=== PATIENT | female | born 1950 | race African-American/Black ===

== ENCOUNTER 2025-02-19 12:41 | Inpatient (IN) | payer OTHER ==
[2025-02-19 14:39] LABS: ABSOLUTE IMMATURE GRANULOCYTES 0.07 x10^3/uL (0.0-0.031); BASOPHILS # 0.04 x10^3/uL (0.01-0.08); HEMATOCRIT 33.6 % (34.1-44.9); HEMOGLOBIN 10.3 g/dL (11.2-15.7); MCHC 30.7 g/dl (32.2-35.5); MEAN CELL VOLUME 91.8 fl (79.4-94.8); MEAN PLT VOLUME 10.5 fl (9.4-12.3); MONOCYTE # 1.06 x10^3/uL (0.24-0.86); MONOCYTE % 6.5 % (4.7-12.5); PLATELET COUNT 286 x10^3/uL (182-369); RDW 18.3 % (12.4-16.6)
[2025-02-19 14:49] LABS: INR 1.19 (0.83-1.09); PROTHROMBIN TIME (PATIENT) 13.1 SEC (9.7-13.0)
[2025-02-19 15:07] LABS: VENOUS BASE EXCESS 1.3 mmol/L (-2-2); VENOUS O2 SATURATION 28.8 % (70-80); VENOUS PCO2 56.3 mmHg (38-52); VENOUS PH 7.322 (7.310-7.410)
[2025-02-19 15:07] LABS: URINE APPEARANCE CLEAR; URINE BILIRUBIN NEGATIVE (NEGATIVE); URINE COLOR YELLOW; URINE GLUCOSE (UA) 3+ (NEGATIVE); URINE KETONE NEGATIVE (NEGATIVE); URINE LEUK ESTERASE NEGATIVE (NEGATIVE); URINE NITRITE NEGATIVE (NEGATIVE); URINE PROTEIN NEGATIVE (NEGATIVE); URINE UROBILINOGEN 0.2 mg/dL (0.2-1.0)
[2025-02-19] MEDS ORDERED: VANCOMYCIN 1,000 MG in DEXTROSE 5%-WATER - 250 ML IVPB ONE (15:17)
[2025-02-19] MEDS ORDERED: CEFEPIME HCL/D5W 2 GM/50 ML BAG IVPB ONE (15:24)
[2025-02-19] MEDS: CEFEPIME HCL 2 GM VIAL (RESTRICTED TO ID) IVPB ONE (15:39)
[2025-02-19] MEDS ORDERED: AZITHROMYCIN IVPB 500 MG/250 ML BAG IVPB ONE (16:06)
[2025-02-19] MEDS: AZITHROMYCIN IVPB 500 MG/250 ML BAG IVPB ONE (16:15)
[2025-02-19 17:00] LABS: CHLORIDE 100 mmol/L (98-107); POTASSIUM 5.4 mmol/L (3.5-5.1); SODIUM 140 mmol/L (136-145)
[2025-02-19] MEDS ORDERED: HEPARIN NA (PORCINE) 5,000 UNITS/ML 1ML VIAL IVPUSH PRN ×2 (17:00)
[2025-02-19 17:02] LABS: CALCIUM 9.2 mg/dL (8.5-10.1)
[2025-02-19 17:03] LABS: ALBUMIN 2.5 g/dl (3.4-5.0); ANION GAP 14 mmol/L (4-13); BLOOD UREA NITROGEN 76.8 mg/dL (7-18); CO2 25 mmol/L (21-32); MAGNESIUM 2.2 mg/dL (1.8-2.4)
[2025-02-19 17:05] LABS: SGPT/ALT 18 U/L (13-61)
[2025-02-19 17:06] LABS: CREATININE 1.7 mg/dL (0.55-1.3); PHOSPHOROUS 5.7 mg/dL (2.5-4.9); SGOT/AST 37 U/L (15-37)
[2025-02-19 17:07] LABS: BILIRUBIN,TOTAL 0.4 mg/dL (0.2-1); TOT PROT 7.2 g/dl (6.4-8.2)
[2025-02-19 17:08] LABS: ALK PHOS 74 U/L (45-117)
[2025-02-19 17:09] LABS: GLUCOSE,RANDOM 447 mg/dL (74-106)
[2025-02-19] MEDS ORDERED: ATORVASTATIN CA 40 MG TABLET (FP) ONE (17:09)
[2025-02-19] MEDS ORDERED: ASPIRIN 81 MG CHEWABLE TABLETS ONE (17:09)
[2025-02-19] MEDS ORDERED: HEPARIN NA (PORCINE) 5,000 UNITS/ML 1ML VIAL ONE (17:10)
[2025-02-19] MEDS ORDERED: ACETAMINOPHEN INJECTION 100 ML ONE (17:10)
[2025-02-19] MEDS: ATORVASTATIN CA 80 MG TABLET (FP) PO ONE (17:15)
[2025-02-19] MEDS: ASPIRIN 81 MG CHEWABLE TABLETS PO ONE (17:15)
[2025-02-19] MEDS: ACETAMINOPHEN 1000 MG/100 ML BAG IVPB ONE (17:20)
[2025-02-19] MEDS: HEPARIN NA (PORCINE) 5,000 UNITS/ML 1ML VIAL IVPUSH ONE (17:25)
[2025-02-19] MEDS: HEPARIN SOD,PORK IN 0.45% NACL 25,000 UNIT/500 ML INFUS.BAG IVPB SCH (17:35)
[2025-02-19] MEDS ORDERED: INSULIN ASPART SLIDING SCALE (NOVOLOG) 1 VIAL SQ ONE (17:46)
[2025-02-19] MEDS: INSULIN (NOVOLOG) ASPART 100 UNITS/ML 10ML VIAL SQ ONE (18:00)
[2025-02-19] MEDS: INSULIN ASPART SLIDING SCALE (NOVOLOG) 1 VIAL SQ SCH (22:19)
[2025-02-20] MEDS: HEPARIN NA (PORCINE) 5,000 UNITS/ML 1ML VIAL IVPUSH PRN ×2 (00:33→18:37)
[2025-02-20 01:53] LABS: ALBUMIN 2.6 g/dl (3.4-5.0); BLOOD UREA NITROGEN 81.7 mg/dL (7-18); CALCIUM 9.5 mg/dL (8.5-10.1); MAGNESIUM 2.1 mg/dL (1.8-2.4)
[2025-02-20 01:57] LABS: CREATININE 1.5 mg/dL (0.55-1.3); PHOSPHOROUS 4.4 mg/dL (2.5-4.9)
[2025-02-20 01:58] LABS: BILIRUBIN,TOTAL 0.4 mg/dL (0.2-1); TOT PROT 7.2 g/dl (6.4-8.2)
[2025-02-20] MEDS: METOPROLOL TARTRATE 5 MG/5 ML VIAL IVPUSH ONE (02:34)
[2025-02-20] MEDS: METOPROLOL TARTRATE 5 MG/5 ML VIAL IVPUSH PRN (04:00)
[2025-02-20] MEDS: SODIUM CHLORIDE 1,000 ML IV STA (05:28)
[2025-02-20] MEDS: SODIUM CHLORIDE 0.45% 1,000 ML IV SCH (06:20)
[2025-02-20] MEDS: DIGOXIN 0.5 MG/2 ML AMPUL IVPUSH ONE (06:41)
[2025-02-20 07:16] LABS: ABSOLUTE IMMATURE GRANULOCYTES 0.06 x10^3/uL (0.0-0.031); BASOPHILS # 0.04 x10^3/uL (0.01-0.08); EOSINOPHIL % 0.6 % (0.7-5.8); EOSINOPHILS # 0.07 x10^3/uL (0.04-0.36); HEMATOCRIT 32.8 % (34.1-44.9); HEMOGLOBIN 9.9 g/dL (11.2-15.7); MCHC 30.2 g/dl (32.2-35.5); MEAN CELL VOLUME 91.4 fl (79.4-94.8); MEAN PLT VOLUME 10.3 fl (9.4-12.3); MONOCYTE # 0.91 x10^3/uL (0.24-0.86); MONOCYTE % 7.2 % (4.7-12.5); PLATELET COUNT 273 x10^3/uL (182-369); RDW 17.9 % (12.4-16.6)
[2025-02-20] MEDS: ASPIRIN 81 MG CHEWABLE TABLETS PO SCH (11:19)
[2025-02-20 13:10] VITALS: BMI 24.2
[2025-02-21 09:09] LABS: ABSOLUTE IMMATURE GRANULOCYTES 0.03 x10^3/uL (0.0-0.031); BASOPHILS # 0.02 x10^3/uL (0.01-0.08); EOSINOPHIL % 0.1 % (0.7-5.8); EOSINOPHILS # 0.01 x10^3/uL (0.04-0.36); HEMATOCRIT 31.6 % (34.1-44.9); HEMOGLOBIN 9.4 g/dL (11.2-15.7); MCHC 29.7 g/dl (32.2-35.5); MEAN CELL VOLUME 95.2 fl (79.4-94.8); MEAN PLT VOLUME 12.1 fl (9.4-12.3); MONOCYTE # 1.13 x10^3/uL (0.24-0.86); MONOCYTE % 9.1 % (4.7-12.5); PLATELET COUNT 244 x10^3/uL (182-369); RDW 18.6 % (12.4-16.6)
[2025-02-21 09:49] LABS: ALBUMIN 2.2 g/dl (3.4-5.0); CALCIUM 9.9 mg/dL (8.5-10.1)
[2025-02-21 09:51] LABS: POTASSIUM 3.7 mmol/L (3.5-5.1)
[2025-02-21 09:54] LABS: BILIRUBIN,TOTAL 0.5 mg/dL (0.2-1); TOT PROT 6.9 g/dl (6.4-8.2)
[2025-02-21 09:59] LABS: BLOOD UREA NITROGEN 48.7 mg/dL (7-18)
[2025-02-21] MEDS ORDERED: METOPROLOL TARTRATE 5 MG/5 ML VIAL ONE (11:09)
[2025-02-21] MEDS ORDERED: SODIUM CHLORIDE 0.9% 500 ML INFUS.BAG IV ONE (11:45)
[2025-02-21] MEDS: SODIUM CHLORIDE 0.9% 500 ML INFUS.BAG IV ONE (12:00)
[2025-02-21] MEDS: AMIODARONE IN DEXTROSE,ISO-OSM 150 MG/100 ML BAG IVPB ONE (12:42)
[2025-02-21] MEDS: SODIUM CHLORIDE 0.9% 250 ML INFUS.BAG IV ONE (12:46)
[2025-02-21] MEDS: AMIODARONE IN DEXTROSE,ISO-OSM 360 MG/200 ML BAG IV SCH ×2 (13:08→18:44)
[2025-02-21] MEDS: CEFTRIAXONE 2 GM-D5W BAG 2 GM/50 ML BAG IVPB SCH (14:44)
[2025-02-21] MEDS: ACETAMINOPHEN 325 MG TABLET (FP) PO PRN (17:39)
[2025-02-22 07:06] LABS: POTASSIUM 3.3 mmol/L (3.5-5.1)
[2025-02-22 07:08] LABS: ALBUMIN 2.1 g/dl (3.4-5.0); BLOOD UREA NITROGEN 37.7 mg/dL (7-18); CALCIUM 9.3 mg/dL (8.5-10.1)
[2025-02-22 07:12] LABS: CREATININE 0.8 mg/dL (0.55-1.3)
[2025-02-22 07:13] LABS: BILIRUBIN,TOTAL 0.3 mg/dL (0.2-1); TOT PROT 6.5 g/dl (6.4-8.2)
[2025-02-22] MEDS: KCL 10 MEQ IVPB 10 MEQ/100 ML INFUS.BAG IVPB SCH (11:38)
[2025-02-22] MEDS: METOPROLOL TARTRATE 25 MG TABLET (FP) PO SCH (15:08)
[2025-02-23] MEDS ORDERED: DIGOXIN 0.125 MG TABLET PO PRN ×3 (05:37→07:37)
[2025-02-23] MEDS ORDERED: METOPROLOL TARTRATE 5 MG/5 ML VIAL IVPUSH PRN (05:41)
[2025-02-23] MEDS ORDERED: AMIODARONE IN DEXTROSE,ISO-OSM 150 MG/100 ML BAG IVPB ONE (05:45)
[2025-02-23] MEDS: METOPROLOL TARTRATE 5 MG/5 ML VIAL IVPUSH ONE (05:46)
[2025-02-23] MEDS ORDERED: AMIODARONE IN DEXTROSE,ISO-OSM 360 MG/200 ML BAG IV SCH ×2 (05:55→11:55)
[2025-02-23] MEDS ORDERED: DIGOXIN 0.25 MG TABLET PO PRN (06:37)
[2025-02-23 07:40] LABS: ABSOLUTE IMMATURE GRANULOCYTES 0.06 x10^3/uL (0.0-0.031); BASOPHILS # 0.01 x10^3/uL (0.01-0.08); EOSINOPHIL % 0.6 % (0.7-5.8); EOSINOPHILS # 0.07 x10^3/uL (0.04-0.36); HEMATOCRIT 28.9 % (34.1-44.9); HEMOGLOBIN 8.7 g/dL (11.2-15.7); MCHC 30.1 g/dl (32.2-35.5); MEAN PLT VOLUME 11.9 fl (9.4-12.3); MONOCYTE # 0.78 x10^3/uL (0.24-0.86); PLATELET COUNT 223 x10^3/uL (182-369); RDW 18.9 % (12.4-16.6)
[2025-02-23 07:43] LABS: POTASSIUM 3.4 mmol/L (3.5-5.1)
[2025-02-23 07:53] LABS: CALCIUM 9.2 mg/dL (8.5-10.1)
[2025-02-23 07:54] LABS: BLOOD UREA NITROGEN 46.8 mg/dL (7-18); MAGNESIUM 2.1 mg/dL (1.8-2.4)
[2025-02-23 07:59] LABS: BILIRUBIN,TOTAL 0.3 mg/dL (0.2-1); TOT PROT 6.3 g/dl (6.4-8.2)
[2025-02-23] MEDS: APIXABAN 5 MG TABLET PO SCH (09:59)
[2025-02-23] MEDS: KCL 10 MEQ IVPB 10 MEQ/100 ML INFUS.BAG IVPB SCH (12:08)
[2025-02-23] MEDS: METOPROLOL TARTRATE 50 MG TABLET (FP) PO SCH (15:32)
[2025-02-23] MEDS: AMIODARONE HCL 200 MG TABLET PO SCH (15:32)
[2025-02-23] MEDS: FUROSEMIDE 40 MG/4 ML INJECTABLE VIAL IVPUSH ONE ×3 (16:02→20:32)
[2025-02-23] MEDS ORDERED: FUROSEMIDE 40 MG/4 ML INJECTABLE VIAL ONE (19:53)
[2025-02-23 20:11] LABS: ARTERIAL BLD GAS O2 SATURATION 99.3 % (95-98); ARTERIAL BLOOD GAS BASE EXCESS 6.7 mmol/L (-2-2); ARTERIAL BLOOD GAS PO2 170.3 mmHg (80-100); ARTERIAL BLOOD GAS pH 7.508 (7.350-7.450); O2 CONTENT 1.52 % vol
[2025-02-23 20:15] LABS: ALLENS TEST POSITIVE
[2025-02-24] MEDS: FUROSEMIDE 40 MG/4 ML INJECTABLE VIAL IVPUSH SCH (05:54)
[2025-02-24] MEDS: DIGOXIN 0.5 MG/2 ML AMPUL IVPUSH ONE (06:49)
[2025-02-24 08:11] LABS: POTASSIUM 3.4 mmol/L (3.5-5.1)
[2025-02-24 08:18] LABS: ALBUMIN 1.9 g/dl (3.4-5.0); BLOOD UREA NITROGEN 52.4 mg/dL (7-18)
[2025-02-24 08:20] LABS: BASOPHILS # 0.01 x10^3/uL (0.01-0.08); HEMOGLOBIN 8.2 g/dL (11.2-15.7); MEAN CELL VOLUME 88.8 fl (79.4-94.8)
[2025-02-24 08:21] LABS: ABSOLUTE IMMATURE GRANULOCYTES 0.05 x10^3/uL (0.0-0.031); EOSINOPHIL % 0.5 % (0.7-5.8); EOSINOPHILS # 0.04 x10^3/uL (0.04-0.36); HEMATOCRIT 26.1 % (34.1-44.9); MCHC 31.4 g/dl (32.2-35.5); MEAN PLT VOLUME 12.1 fl (9.4-12.3); MONOCYTE # 0.59 x10^3/uL (0.24-0.86); MONOCYTE % 6.8 % (4.7-12.5); PLATELET COUNT 220 x10^3/uL (182-369); RDW 18.9 % (12.4-16.6)
[2025-02-24 08:22] LABS: CREATININE 1.1 mg/dL (0.55-1.3)
[2025-02-24 08:24] LABS: BILIRUBIN,TOTAL 0.9 mg/dL (0.2-1)
[2025-02-24] MEDS: AMIODARONE IN DEXTROSE,ISO-OSM 360 MG/200 ML BAG IV SCH (09:21)
[2025-02-24] MEDS: AMIODARONE IN DEXTROSE 150 MG/100 ML PREMIX BAG IVPB ONE (09:23)
[2025-02-24] MEDS: AMINO ACIDS 4.25%/D5W 1,000 ML IV SCH (10:49)
[2025-02-24] MEDS: ENOXAPARIN NA (PORCINE) 60 MG/0.6 ML DISP.SYRIN SQ SCH (10:52)
[2025-02-24] MEDS: ACETAMINOPHEN 1000 MG/100 ML BAG IVPB PRN (21:21)
[2025-02-25 07:15] LABS: EOSINOPHIL % 0.5 % (0.7-5.8); EOSINOPHILS # 0.06 x10^3/uL (0.04-0.36); HEMOGLOBIN 8.3 g/dL (11.2-15.7)
[2025-02-25 07:17] LABS: ABSOLUTE IMMATURE GRANULOCYTES 0.12 x10^3/uL (0.0-0.031); BASOPHILS # 0.03 x10^3/uL (0.01-0.08); MCHC 31.9 g/dl (32.2-35.5); MEAN CELL VOLUME 86.7 fl (79.4-94.8); MONOCYTE # 0.52 x10^3/uL (0.24-0.86); MONOCYTE % 4.1 % (4.7-12.5); PLATELET COUNT 223 x10^3/uL (182-369); RDW 18.6 % (12.4-16.6)
[2025-02-25 08:02] LABS: ALBUMIN 1.7 g/dl (3.4-5.0); ALK PHOS 72 U/L (45-117); ANION GAP 10 mmol/L (4-13); BILIRUBIN,TOTAL 0.3 mg/dL (0.2-1); BLOOD UREA NITROGEN 60.3 mg/dL (7-18); CALCIUM 9.1 mg/dL (8.5-10.1); CHLORIDE 115 mmol/L (98-107); CO2 28 mmol/L (21-32); CREATININE 1.3 mg/dL (0.55-1.3); GLUCOSE,RANDOM 281 mg/dL (74-106); POTASSIUM 2.6 mmol/L (3.5-5.1); SGOT/AST 21 U/L (15-37); SGPT/ALT 12 U/L (13-61); SODIUM 153 mmol/L (136-145); TOT PROT 5.6 g/dl (6.4-8.2)
[2025-02-25] MEDS: CALCIUM GLUCONATE 10% - 1,000 MG/10 ML VIAL IVPB ONE (09:06)
[2025-02-25] MEDS: KCL 10 MEQ IVPB 10 MEQ/100 ML INFUS.BAG IVPB SCH (09:10)
[2025-02-25] MEDS: AMIODARONE IN DEXTROSE,ISO-OSM 360 MG/200 ML BAG IV SCH (09:23)
[2025-02-25 11:11] LABS: ARTERIAL BLD GAS O2 SATURATION 97.9 % (95-98); ARTERIAL BLOOD GAS BASE EXCESS 4.6 mmol/L (-2-2); ARTERIAL BLOOD GAS pH 7.493 (7.350-7.450); O2 CONTENT 1.25 % vol
[2025-02-25 11:15] LABS: ALLENS TEST POSITIVE
[2025-02-25] MEDS: POTASSIUM CHLORIDE 40 MEQ in AMINO ACIDS 4.25%/D5W 1,000 ML IV SCH (13:28)
[2025-02-25] MEDS: METOPROLOL TARTRATE 5 MG/5 ML VIAL IVPUSH PRN (18:49)
[2025-02-25] MEDS: CHLORHEXIDINE GLUCONATE 4% CLEANSER FOR DECOLONIZATION TP SCH (22:07)
[2025-02-25] MEDS: MUPIROCIN 2% TOPICAL OINTMENT FOR DECOLONIZATION NS SCH (22:18)
[2025-02-26] MEDS: AMIODARONE HCL 200 MG TABLET PO SCH ×2 (00:10→12:19)
[2025-02-26 07:05] LABS: HEMOGLOBIN 8.5 g/dL (11.2-15.7)
[2025-02-26 07:07] LABS: HEMATOCRIT 26.8 % (34.1-44.9); MCHC 31.7 g/dl (32.2-35.5); MEAN CELL VOLUME 86.5 fl (79.4-94.8); MEAN PLT VOLUME 12.2 fl (9.4-12.3); PLATELET COUNT 223 x10^3/uL (182-369); RDW 19.1 % (12.4-16.6)
[2025-02-26 07:28] LABS: POTASSIUM 3.7 mmol/L (3.5-5.1)
[2025-02-26 07:35] LABS: ALBUMIN 1.7 g/dl (3.4-5.0); TOT PROT 5.7 g/dl (6.4-8.2)
[2025-02-26 07:38] LABS: BILIRUBIN,TOTAL 0.4 mg/dL (0.2-1); CALCIUM 9.2 mg/dL (8.5-10.1); CREATININE 1.3 mg/dL (0.55-1.3)
[2025-02-26] MEDS: AMIODARONE IN DEXTROSE,ISO-OSM 150 MG/100 ML BAG IVPB ONE (08:10)
[2025-02-26 08:27] LABS: MAGNESIUM 1.8 mg/dL (1.8-2.4)
[2025-02-26] MEDS: AMIODARONE IN DEXTROSE,ISO-OSM 360 MG/200 ML BAG IV SCH ×2 (09:03→20:37)
[2025-02-26] MEDS ORDERED: AMIODARONE IN DEXTROSE,ISO-OSM 360 MG/200 ML BAG IV SCH (13:40)
[2025-02-26] MEDS: ACETAMINOPHEN 1000 MG/100 ML BAG IVPB PRN (17:29)
[2025-02-26] MEDS: methylPREDNISolone NA SUCC 40 MG/1 ML VIAL IVPUSH SCH (19:59)
[2025-02-26] MEDS: AMIODARONE IN DEXTROSE 150 MG/100 ML PREMIX BAG IVPB ONE (20:28)
[2025-02-26 21:13] LABS: ARTERIAL BLOOD GAS BASE EXCESS 0.9 mmol/L (-2-2); ARTERIAL BLOOD GAS PO2 53.2 mmHg (80-100); ARTERIAL BLOOD GAS pH 7.442 (7.350-7.450); O2 CONTENT 1.17 % vol
[2025-02-26 21:14] LABS: ALLENS TEST POSITIVE
[2025-02-26] MEDS ORDERED: RAPID SEQUENCE INTUBATION KIT NR ONE (21:36)
[2025-02-26] MEDS ORDERED: MIDAZOLAM HCL 2 MG/2 ML SINGLE DOSE VIAL ONE (21:45)
[2025-02-26] MEDS ORDERED: ALBUTEROL SO4 2.5/IPRATROPIUM 0.5 INH SOL 3 ML VIAL.NEB. NEB ONE (22:00)
[2025-02-26] MEDS: ALBUTEROL SO4 2.5/IPRATROPIUM 0.5 INH SOL 3 ML VIAL.NEB. NEB PRN (22:05)
[2025-02-26] MEDS ORDERED: CEFEPIME HCL 1 GM VIAL (RESTRICTED TO ID) IVPB SCH (23:00)
[2025-02-26 23:04] LABS: ARTERIAL BLD GAS O2 SATURATION 98.7 % (95-98); ARTERIAL BLOOD GAS BASE EXCESS -0.3 mmol/L (-2-2); ARTERIAL BLOOD GAS PO2 128.5 mmHg (80-100); ARTERIAL BLOOD GAS pH 7.448 (7.350-7.450)
[2025-02-26 23:07] LABS: ALLENS TEST POSITIVE
[2025-02-26] MEDS: CEFEPIME 1 GM in DEXTROSE 5%-WATER 100 ML IVPB SCH (23:18)
[2025-02-27] MEDS: VANCOMYCIN/WATER FOR INJ (PEG) 750 MG/150 ML BAG IVPB SCH (00:50)
[2025-02-27] MEDS ORDERED: AMIODARONE IN DEXTROSE,ISO-OSM 360 MG/200 ML BAG IV SCH (06:45)
[2025-02-27] MEDS: AMIODARONE IN DEXTROSE,ISO-OSM 360 MG/200 ML BAG IV SCH (07:57)
[2025-02-27 07:58] LABS: CHLORIDE 106 mmol/L (98-107); POTASSIUM 4.4 mmol/L (3.5-5.1); SODIUM 142 mmol/L (136-145)
[2025-02-27 08:01] LABS: ALBUMIN 1.6 g/dl (3.4-5.0); ANION GAP 11 mmol/L (4-13); BLOOD UREA NITROGEN 95.6 mg/dL (7-18); CALCIUM 9.4 mg/dL (8.5-10.1); CO2 25 mmol/L (21-32); MAGNESIUM 1.8 mg/dL (1.8-2.4)
[2025-02-27 08:04] LABS: PHOSPHOROUS 2.5 mg/dL (2.5-4.9); SGOT/AST 17 U/L (15-37); SGPT/ALT 12 U/L (13-61)
[2025-02-27 08:06] LABS: BILIRUBIN,TOTAL 0.4 mg/dL (0.2-1)
[2025-02-27 08:07] LABS: ALK PHOS 98 U/L (45-117)
[2025-02-27 08:15] LABS: GLUCOSE,RANDOM 524 mg/dL (74-106)
[2025-02-27] MEDS: AMIODARONE IN DEXTROSE,ISO-OSM 150 MG/100 ML BAG IVPB ONE (10:27)
[2025-02-27] MEDS: INSULIN (NOVOLOG) ASPART 100 UNITS/ML 10ML VIAL SQ ONE (10:34)
[2025-02-27 13:13] LABS: HEMATOCRIT 27.3 % (34.1-44.9); MEAN CELL VOLUME 83.2 fl (79.4-94.8); MEAN PLT VOLUME 12.1 fl (9.4-12.3); PLATELET COUNT 243 x10^3/uL (182-369); RDW 19.6 % (12.4-16.6)
[2025-02-27 14:33] LABS: ALBUMIN 1.5 g/dl (3.4-5.0); ALK PHOS 107 U/L (45-117); ANION GAP 12 mmol/L (4-13); BILIRUBIN,TOTAL 0.3 mg/dL (0.2-1); BLOOD UREA NITROGEN 104.5 mg/dL (7-18); CALCIUM 9.4 mg/dL (8.5-10.1); CHLORIDE 104 mmol/L (98-107); CO2 22 mmol/L (21-32); CREATININE 2.2 mg/dL (0.55-1.3); GLUCOSE,RANDOM 585 mg/dL (74-106); POTASSIUM 4.3 mmol/L (3.5-5.1); SGOT/AST 17 U/L (15-37); SGPT/ALT 11 U/L (13-61); SODIUM 138 mmol/L (136-145); TOT PROT 5.7 g/dl (6.4-8.2)
[2025-02-27 20:31] LABS: ARTERIAL BLD GAS O2 SATURATION 91.4 % (95-98); ARTERIAL BLOOD GAS BASE EXCESS -3.1 mmol/L (-2-2); ARTERIAL BLOOD GAS PO2 58.1 mmHg (80-100); ARTERIAL BLOOD GAS pH 7.436 (7.350-7.450)
[2025-02-27 20:32] LABS: ALLENS TEST POSITIVE
[2025-02-27] MEDS: SODIUM CHLORIDE FOR INHALATION 3 ML VIAL.NEB IH SCH (21:00)
[2025-02-27] MEDS: INSULIN GLARGINE (LANTUS) 100 UNITS/ML UNITS SQ SCH (21:48)
[2025-02-27] MEDS: methylPREDNISolone NA SUCC 40 MG/1 ML VIAL IVPUSH SCH (23:23)
[2025-02-27] MEDS: INSULIN ASPART SLIDING SCALE (NOVOLOG) 1 VIAL SQ SCH (23:24)
[2025-02-28 09:33] LABS: LACTIC ACID 2.6 mmol/L (0.4-2.0)
[2025-02-28 09:57] LABS: CHLORIDE 106 mmol/L (98-107); POTASSIUM 4.2 mmol/L (3.5-5.1); SODIUM 140 mmol/L (136-145)
[2025-02-28 09:59] LABS: CALCIUM 9.4 mg/dL (8.5-10.1)
[2025-02-28 10:00] LABS: ALBUMIN 1.5 g/dl (3.4-5.0); ANION GAP 14 mmol/L (4-13); CO2 20 mmol/L (21-32); GLUCOSE,RANDOM 307 mg/dL (74-106)
[2025-02-28 10:03] LABS: CREATININE 2.5 mg/dL (0.55-1.3); SGOT/AST 19 U/L (15-37); SGPT/ALT 12 U/L (13-61)
[2025-02-28 10:04] LABS: BILIRUBIN,TOTAL 0.2 mg/dL (0.2-1)
[2025-02-28] MEDS: MEROPENEM 1 GM in DEXTROSE 5%-WATER 100 ML IVPB SCH (10:05)
[2025-02-28 10:06] LABS: ALK PHOS 103 U/L (45-117)
[2025-02-28] MEDS ORDERED: INSULIN ASPART SLIDING SCALE (NOVOLOG) 1 VIAL SQ ONE (10:18)
[2025-02-28] MEDS: LACTATED RINGERS SOLUTION 1,000 ML/1,000 ML INFUS.BAG IV SCH (11:22)
[2025-02-28] MEDS ORDERED: INSULIN GLARGINE (LANTUS) 100 UNITS/ML UNITS SQ SCH (12:13)
[2025-02-28 12:38] LABS: LACTIC ACID 2.7 mmol/L (0.4-2.0)
[2025-02-28] MEDS ORDERED: RAPID SEQUENCE INTUBATION KIT NR ONE (15:35)
[2025-02-28] MEDS ORDERED: NOREPINEPHRINE BITARTRATE 4 MG/4 ML ML IV ONE (15:42)
[2025-02-28] MEDS ORDERED: PROPOFOL 1,000,000 MCG/100 ML VIAL ONE (15:46)
[2025-02-28] MEDS ORDERED: PROPOFOL 1,000,000 MCG/100 ML VIAL IVPB SCH (16:00)
[2025-02-28] MEDS ORDERED: ACETYLCYSTEINE 20% 200MG/ML 30 ML VIAL *FOR ORAL / INH USE ONLY NEB SCH (16:30)
[2025-02-28] MEDS: ACETYLCYSTEINE 20% 200MG/ML 4 ML VIAL *FOR ORAL / INH USE ONLY NEB SCH (16:42)
[2025-02-28] MEDS: ALBUTEROL SO4 0.083% IH SOL 2.5 MG/3 ML VIAL.NEB. NEB SCH (16:42)
[2025-02-28 17:08] LABS: INR 1.48 (0.83-1.09); PROTHROMBIN TIME (PATIENT) 16.1 SEC (9.7-13.0)
[2025-02-28 17:11] LABS: ACTIVATED PTT 40.2 SECONDS (25.2-36.5)
[2025-02-28 17:19] LABS: POTASSIUM 3.9 mmol/L (3.5-5.1)
[2025-02-28 17:20] LABS: URINE APPEARANCE TURBID; URINE BILIRUBIN NEGATIVE (NEGATIVE); URINE COLOR YELLOW; URINE GLUCOSE (UA) 500 mg/dl (NEGATIVE); URINE KETONE TRACE (NEGATIVE)
[2025-02-28 17:21] LABS: URINE LEUK ESTERASE NEGATIVE (NEGATIVE); URINE NITRITE NEGATIVE (NEGATIVE); URINE PROTEIN TRACE (NEGATIVE); URINE UROBILINOGEN 0.2 mg/dL (0.2-1.0)
[2025-02-28 17:23] LABS: URINE RBC 20.2 /uL (0-23.9)
[2025-02-28 17:24] LABS: EPI CELLS 82.6 /uL (0-25.1); HYALINE CASTS 29.9 /uL (0-3.1); URINE BACTERIA 2.8 /uL (0-1359)
[2025-02-28] MEDS: PROPOFOL 1,000,000 MCG/100 ML VIAL IVPB SCH (17:25)
[2025-02-28] MEDS: NOREPINEPHRINE BITARTRATE 4,000 MCG in DEXTROSE 5%-WATER - 496 ML IV SCH (17:25)
[2025-02-28 17:31] LABS: LACTIC ACID 6.4 mmol/L (0.4-2.0)
[2025-02-28 18:27] LABS: ARTERIAL BLD GAS O2 SATURATION 99.2 % (95-98); ARTERIAL BLOOD GAS BASE EXCESS -5.2 mmol/L (-2-2); ARTERIAL BLOOD GAS PO2 170.9 mmHg (80-100); ARTERIAL BLOOD GAS pH 7.432 (7.350-7.450)
[2025-02-28 18:31] LABS: ALLENS TEST POSITIVE
[2025-02-28 18:32] LABS: VENT MODE A/C; VENT RATE 12
[2025-02-28] MEDS: NOREPINEPHRINE 0.9 % NACL 8 MG/250 ML BAG IVPB SCH (18:53)
[2025-02-28 20:02] LABS: LACTIC ACID 2.6 mmol/L (0.4-2.0)
[2025-02-28] MEDS: SODIUM CHLORIDE 500 ML IV STA (20:34)
[2025-02-28 21:09] LABS: ANION GAP 15 mmol/L (4-13); BLOOD UREA NITROGEN 123.2 mg/dL (7-18); CALCIUM 8.9 mg/dL (8.5-10.1); CHLORIDE 105 mmol/L (98-107); CO2 18 mmol/L (21-32); GLUCOSE,RANDOM 302 mg/dL (74-106); MAGNESIUM 1.8 mg/dL (1.8-2.4); POTASSIUM 4.1 mmol/L (3.5-5.1); SODIUM 138 mmol/L (136-145)
[2025-02-28] MEDS ORDERED: LACTATED RINGERS SOLUTION 1,000 ML/1,000 ML INFUS.BAG IV SCH (21:23)
[2025-02-28] MEDS ORDERED: SODIUM CHLORIDE 0.9% 500 ML INFUS.BAG IV ONE (21:23)
[2025-02-28] MEDS ORDERED: ALBUTEROL SO4 2.5/IPRATROPIUM 0.5 INH SOL 3 ML VIAL.NEB. NEB PRN (21:23)
[2025-02-28] MEDS: LACTATED RINGERS SOLUTION 1000 ML INFUS.BAG IV ONE (21:25)
[2025-02-28 21:26] LABS: CREATININE 2.5 mg/dL (0.55-1.3); PHOSPHOROUS 3.3 mg/dL (2.5-4.9)
[2025-02-28] MEDS: CHLORHEXIDINE GLUCONATE 4% CLEANSER FOR DECOLONIZATION TP SCH (22:00)
[2025-02-28] MEDS ORDERED: CEFEPIME 1 GM in DEXTROSE 5%-WATER 100 ML IVPB SCH (22:00)
[2025-02-28] MEDS ORDERED: MUPIROCIN 2% TOPICAL OINTMENT FOR DECOLONIZATION NS SCH (22:00)
[2025-02-28] MEDS ORDERED: MEROPENEM 500 MG in DEXTROSE 5%-WATER 100 ML IVPB SCH (22:00)
[2025-02-28] MEDS: AMIODARONE HCL 200 MG TABLET PO SCH (22:00)
[2025-02-28] MEDS ORDERED: CHLORHEXIDINE GLUCONATE 4% CLEANSER FOR DECOLONIZATION TP SCH (22:00)
[2025-02-28] MEDS: MEROPENEM 500 MG in DEXTROSE 5%-WATER 100 ML IVPB SCH (22:00)
[2025-02-28] MEDS: INSULIN GLARGINE (LANTUS) 100 UNITS/ML UNITS SQ SCH (22:02)
[2025-02-28] MEDS ORDERED: VANCOMYCIN/WATER FOR INJ (PEG) 750 MG/150 ML BAG IVPB SCH (23:00)
[2025-02-28] MEDS: MUPIROCIN 2% TOPICAL OINTMENT FOR DECOLONIZATION NS SCH (23:49)
[2025-02-28] MEDS: METOPROLOL TARTRATE 50 MG TABLET (FP) PO SCH (23:49)
[2025-03-01] MEDS: INSULIN ASPART SLIDING SCALE (NOVOLOG) 1 VIAL SQ SCH (00:18)
[2025-03-01 06:51] LABS: CHLORIDE 103 mmol/L (98-107); POTASSIUM 4.3 mmol/L (3.5-5.1); SODIUM 137 mmol/L (136-145)
[2025-03-01 06:54] LABS: CALCIUM 9.5 mg/dL (8.5-10.1)
[2025-03-01 06:55] LABS: ANION GAP 14 mmol/L (4-13); CO2 20 mmol/L (21-32); GLUCOSE,RANDOM 282 mg/dL (74-106); HEMOGLOBIN 8.7 g/dL (11.2-15.7)
[2025-03-01 06:57] LABS: HEMATOCRIT 25.2 % (34.1-44.9); MCHC 34.5 g/dl (32.2-35.5); MEAN CELL VOLUME 78.8 fl (79.4-94.8); MEAN PLT VOLUME 12.3 fl (9.4-12.3); PLATELET COUNT 253 x10^3/uL (182-369); RDW 18.4 % (12.4-16.6); SGPT/ALT 13 U/L (13-61)
[2025-03-01 06:58] LABS: CREATININE 2.6 mg/dL (0.55-1.3); SGOT/AST 22 U/L (15-37)
[2025-03-01 06:59] LABS: BILIRUBIN,TOTAL 0.3 mg/dL (0.2-1)
[2025-03-01 07:15] LABS: LACTIC ACID 2.9 mmol/L (0.4-2.0)
[2025-03-01 07:16] LABS: ALBUMIN 1.5 g/dl (3.4-5.0); ALK PHOS 98 U/L (45-117); BLOOD UREA NITROGEN 124.4 mg/dL (7-18); TOT PROT 5.7 g/dl (6.4-8.2)
[2025-03-01] MEDS: ENOXAPARIN NA (PORCINE) 60 MG/0.6 ML DISP.SYRIN SQ SCH (09:00)
[2025-03-01] MEDS: ASPIRIN 81 MG CHEWABLE TABLETS PO SCH (09:39)
[2025-03-01] MEDS: methylPREDNISolone NA SUCC 40 MG/1 ML VIAL IVPUSH SCH (09:47)
[2025-03-01] MEDS: PANTOPRAZOLE SODIUM 40 MG VIAL IVPUSH SCH (09:47)
[2025-03-01] MEDS ORDERED: methylPREDNISolone NA SUCC 40 MG/1 ML VIAL IVPUSH SCH (10:00)
[2025-03-02 06:53] LABS: CHLORIDE 104 mmol/L (98-107); POTASSIUM 4.7 mmol/L (3.5-5.1); SODIUM 139 mmol/L (136-145)
[2025-03-02 07:00] LABS: ALBUMIN 1.4 g/dl (3.4-5.0); ANION GAP 18 mmol/L (4-13); CALCIUM 9.2 mg/dL (8.5-10.1); CO2 16 mmol/L (21-32); GLUCOSE,RANDOM 227 mg/dL (74-106); MAGNESIUM 1.8 mg/dL (1.8-2.4)
[2025-03-02 07:01] LABS: HEMATOCRIT 23.1 % (34.1-44.9); HEMOGLOBIN 8.4 g/dL (11.2-15.7); MCHC 36.4 g/dl (32.2-35.5); MEAN CELL VOLUME 74.5 fl (79.4-94.8); PLATELET COUNT 218 x10^3/uL (182-369); RDW 18.6 % (12.4-16.6)
[2025-03-02 07:03] LABS: CREATININE 2.9 mg/dL (0.55-1.3); PHOSPHOROUS 4.6 mg/dL (2.5-4.9); SGPT/ALT 14 U/L (13-61)
[2025-03-02 07:04] LABS: BILIRUBIN,TOTAL 0.3 mg/dL (0.2-1); SGOT/AST 20 U/L (15-37); TOT PROT 5.6 g/dl (6.4-8.2)
[2025-03-02 07:06] LABS: ALK PHOS 103 U/L (45-117); BLOOD UREA NITROGEN 139.5 mg/dL (7-18)
[2025-03-02] MEDS: SODIUM CHLORIDE FOR INHALATION 3 ML VIAL.NEB IH SCH (07:18)
[2025-03-02 09:23] LABS: MONOCYTE # 0.46 x10^3/uL (0.24-0.86)
[2025-03-02] MEDS: LACTATED RINGERS SOLUTION 1,000 ML/1,000 ML INFUS.BAG IV SCH (13:00)
[2025-03-02] MEDS: SODIUM CHLORIDE 500 ML IV STA (14:56)
[2025-03-02] MEDS: CASPOFUNGIN ACETATE 70 MG in SODIUM CHLORIDE 250 ML IVPB ONE (15:56)
[2025-03-03 06:35] LABS: ARTERIAL BLD GAS O2 SATURATION 98.4 % (95-98); ARTERIAL BLOOD GAS BASE EXCESS -4.9 mmol/L (-2-2); ARTERIAL BLOOD GAS pH 7.421 (7.350-7.450); O2 CONTENT 1.51 % vol
[2025-03-03 06:46] LABS: ALLENS TEST POSITIVE; VENT MODE A/C; VENT RATE 12
[2025-03-03 07:11] LABS: MCHC 36.4 g/dl (32.2-35.5); MEAN CELL VOLUME 74.6 fl (79.4-94.8); PLATELET COUNT 245 x10^3/uL (182-369)
[2025-03-03 07:14] LABS: CHLORIDE 105 mmol/L (98-107); POTASSIUM 4.5 mmol/L (3.5-5.1); SODIUM 140 mmol/L (136-145)
[2025-03-03 07:16] LABS: CALCIUM 9.1 mg/dL (8.5-10.1)
[2025-03-03 07:17] LABS: ALBUMIN 1.4 g/dl (3.4-5.0); ANION GAP 17 mmol/L (4-13); CO2 18 mmol/L (21-32); GLUCOSE,RANDOM 183 mg/dL (74-106); MAGNESIUM 1.9 mg/dL (1.8-2.4)
[2025-03-03 07:19] LABS: SGPT/ALT 16 U/L (13-61)
[2025-03-03 07:20] LABS: PHOSPHOROUS 4.8 mg/dL (2.5-4.9); SGOT/AST 20 U/L (15-37)
[2025-03-03 07:21] LABS: BILIRUBIN,TOTAL 0.3 mg/dL (0.2-1); TOT PROT 5.4 g/dl (6.4-8.2)
[2025-03-03 07:22] LABS: ALK PHOS 105 U/L (45-117)
[2025-03-03 07:23] LABS: BLOOD UREA NITROGEN 140.4 mg/dL (7-18); CREATININE 2.7 mg/dL (0.55-1.3)
[2025-03-03] MEDS: CASPOFUNGIN ACETATE 50 MG in SODIUM CHLORIDE 250 ML IVPB SCH (09:38)
[2025-03-03] MEDS: LACTATED RINGERS SOLUTION 1,000 ML/1,000 ML INFUS.BAG IV SCH (17:00)
[2025-03-04 06:50] LABS: CHLORIDE 105 mmol/L (98-107); POTASSIUM 4.4 mmol/L (3.5-5.1); SODIUM 139 mmol/L (136-145)
[2025-03-04 06:59] LABS: ALBUMIN 1.5 g/dl (3.4-5.0); ANION GAP 13 mmol/L (4-13); CALCIUM 8.7 mg/dL (8.5-10.1); CO2 20 mmol/L (21-32); GLUCOSE,RANDOM 220 mg/dL (74-106); MAGNESIUM 1.9 mg/dL (1.8-2.4)
[2025-03-04 07:02] LABS: SGOT/AST 43 U/L (15-37); SGPT/ALT 24 U/L (13-61)
[2025-03-04 07:03] LABS: CREATININE 2.4 mg/dL (0.55-1.3); HEMOGLOBIN 7.4 g/dL (11.2-15.7); MCHC 35.2 g/dl (32.2-35.5); MEAN CELL VOLUME 74.7 fl (79.4-94.8); PLATELET COUNT 230 x10^3/uL (182-369); RDW 18.3 % (12.4-16.6)
[2025-03-04 07:04] LABS: BILIRUBIN,TOTAL 0.4 mg/dL (0.2-1); TOT PROT 5.3 g/dl (6.4-8.2)
[2025-03-04 07:05] LABS: ALK PHOS 122 U/L (45-117)
[2025-03-04 07:47] LABS: BLOOD UREA NITROGEN 136.1 mg/dL (7-18)
[2025-03-04] MEDS ORDERED: DEXTROSE 50%-WATER 25 GM/50 ML DISP.SYRIN ONE (17:17)
[2025-03-04] MEDS: METOPROLOL TARTRATE 5 MG/5 ML VIAL IVPUSH PRN (23:54)
[2025-03-05 06:37] LABS: HEMATOCRIT 22.1 % (34.1-44.9); HEMOGLOBIN 7.9 g/dL (11.2-15.7); MCHC 35.7 g/dl (32.2-35.5); MEAN CELL VOLUME 75.7 fl (79.4-94.8); PLATELET COUNT 271 x10^3/uL (182-369); RDW 19.9 % (12.4-16.6)
[2025-03-05 06:40] LABS: CHLORIDE 107 mmol/L (98-107); POTASSIUM 4.5 mmol/L (3.5-5.1); SODIUM 140 mmol/L (136-145)
[2025-03-05 06:47] LABS: ALBUMIN 1.5 g/dl (3.4-5.0); ANION GAP 12 mmol/L (4-13); CO2 22 mmol/L (21-32); GLUCOSE,RANDOM 291 mg/dL (74-106)
[2025-03-05 06:50] LABS: CREATININE 2.1 mg/dL (0.55-1.3); PHOSPHOROUS 4.1 mg/dL (2.5-4.9); SGOT/AST 44 U/L (15-37); SGPT/ALT 33 U/L (13-61)
[2025-03-05 06:51] LABS: BILIRUBIN,TOTAL 0.4 mg/dL (0.2-1)
[2025-03-05 06:52] LABS: TOT PROT 5.3 g/dl (6.4-8.2)
[2025-03-05 06:54] LABS: ALK PHOS 154 U/L (45-117); BLOOD UREA NITROGEN 122.5 mg/dL (7-18)
[2025-03-05] MEDS: AMIODARONE HCL 200 MG TABLET PO SCH (08:56)
[2025-03-05] MEDS: PANTOPRAZOLE SODIUM 40 MG VIAL IVPUSH SCH (08:59)
[2025-03-05] MEDS: ALBUTEROL SO4 0.083% IH SOL 2.5 MG/3 ML VIAL.NEB. NEB PRN (20:12)
[2025-03-05] MEDS: INSULIN GLARGINE (LANTUS) 100 UNITS/ML UNITS SQ SCH (21:14)
[2025-03-06 06:37] LABS: HEMATOCRIT 21.8 % (34.1-44.9); HEMOGLOBIN 7.4 g/dL (11.2-15.7); MCHC 33.9 g/dl (32.2-35.5); MEAN CELL VOLUME 79.6 fl (79.4-94.8); PLATELET COUNT 233 x10^3/uL (182-369); RDW 20.6 % (12.4-16.6)
[2025-03-06 06:44] LABS: CHLORIDE 110 mmol/L (98-107); POTASSIUM 4.4 mmol/L (3.5-5.1); SODIUM 141 mmol/L (136-145)
[2025-03-06 06:49] LABS: ALBUMIN 1.5 g/dl (3.4-5.0); CALCIUM 8.4 mg/dL (8.5-10.1)
[2025-03-06 06:50] LABS: ANION GAP 9 mmol/L (4-13); CO2 22 mmol/L (21-32); GLUCOSE,RANDOM 277 mg/dL (74-106); MAGNESIUM 2.1 mg/dL (1.8-2.4)
[2025-03-06 06:52] LABS: PHOSPHOROUS 3.5 mg/dL (2.5-4.9)
[2025-03-06 06:53] LABS: BILIRUBIN,TOTAL 0.4 mg/dL (0.2-1); CREATININE 1.6 mg/dL (0.55-1.3); SGOT/AST 30 U/L (15-37); SGPT/ALT 27 U/L (13-61); TOT PROT 5.4 g/dl (6.4-8.2)
[2025-03-06 06:55] LABS: ALK PHOS 137 U/L (45-117)
[2025-03-06 08:04] LABS: BLOOD UREA NITROGEN 108.2 mg/dL (7-18)
[2025-03-07] MEDS: INSULIN ASPART SLIDING SCALE (NOVOLOG) 1 VIAL SQ SCH (06:14)
[2025-03-07 07:03] LABS: POTASSIUM 4.9 mmol/L (3.5-5.1)
[2025-03-07 07:11] LABS: ALBUMIN 1.5 g/dl (3.4-5.0)
[2025-03-07 07:13] LABS: CALCIUM 9.3 mg/dL (8.5-10.1)
[2025-03-07 07:14] LABS: HEMATOCRIT 23.1 % (34.1-44.9); HEMOGLOBIN 7.3 g/dL (11.2-15.7); MCHC 31.6 g/dl (32.2-35.5); MEAN CELL VOLUME 83.7 fl (79.4-94.8); MEAN PLT VOLUME 13.4 fl (9.4-12.3); PLATELET COUNT 248 x10^3/uL (182-369); RDW 20.3 % (12.4-16.6)
[2025-03-07 07:18] LABS: BILIRUBIN,TOTAL 0.4 mg/dL (0.2-1)
[2025-03-07 07:19] LABS: TOT PROT 5.3 g/dl (6.4-8.2)
[2025-03-07 07:20] LABS: CREATININE 1.3 mg/dL (0.55-1.3)
[2025-03-07] MEDS: INSULIN (NOVOLOG) ASPART 100 UNITS/ML 10ML VIAL SQ SCH (17:14)
[2025-03-08] MEDS ORDERED: DEXTROSE 50%-WATER 25 GM/50 ML DISP.SYRIN ONE (06:20)
[2025-03-08 07:20] LABS: HEMATOCRIT 22.6 % (34.1-44.9); HEMOGLOBIN 7.3 g/dL (11.2-15.7); MCHC 32.3 g/dl (32.2-35.5); MEAN CELL VOLUME 85.6 fl (79.4-94.8); MEAN PLT VOLUME 12.8 fl (9.4-12.3); PLATELET COUNT 240 x10^3/uL (182-369); RDW 21.9 % (12.4-16.6)
[2025-03-08 07:31] LABS: POTASSIUM 4.7 mmol/L (3.5-5.1)
[2025-03-08 07:40] LABS: ALBUMIN 1.6 g/dl (3.4-5.0); BILIRUBIN,TOTAL 0.5 mg/dL (0.2-1); TOT PROT 5.7 g/dl (6.4-8.2)
[2025-03-08 07:42] LABS: CREATININE 0.8 mg/dL (0.55-1.3)
[2025-03-08 07:43] LABS: CALCIUM 9.4 mg/dL (8.5-10.1); MAGNESIUM 2.3 mg/dL (1.8-2.4)
[2025-03-08] MEDS ORDERED: ALBUTEROL SO4 2.5/IPRATROPIUM 0.5 INH SOL 3 ML VIAL.NEB. NEB PRN (10:48)
[2025-03-08] MEDS: ENOXAPARIN NA (PORCINE) 60 MG/0.6 ML DISP.SYRIN SQ SCH (11:06)
[2025-03-08] MEDS: ALBUTEROL SO4 0.083% IH SOL 2.5 MG/3 ML VIAL.NEB. NEB PRN (12:27)
[2025-03-08] MEDS: ACETAMINOPHEN 1000 MG/100 ML BAG IVPB PRN (15:05)
[2025-03-09] MEDS ORDERED: DEXTROSE 50%-WATER 25 GM/50 ML DISP.SYRIN ONE ×2 (05:46→21:44)
[2025-03-09] MEDS: DEXTROSE 50%-WATER - 25 GM/50 ML VIAL IVPUSH PRN (05:49)
[2025-03-09 06:50] LABS: MEAN PLT VOLUME 13.1 fl (9.4-12.3)
[2025-03-09 06:52] LABS: HEMATOCRIT 25.4 % (34.1-44.9); HEMOGLOBIN 8.3 g/dL (11.2-15.7); MCHC 32.7 g/dl (32.2-35.5); MEAN CELL VOLUME 84.1 fl (79.4-94.8); PLATELET COUNT 176 x10^3/uL (182-369); RDW 19.2 % (12.4-16.6)
[2025-03-09 07:11] LABS: POTASSIUM 4.6 mmol/L (3.5-5.1)
[2025-03-09 07:12] LABS: BLOOD UREA NITROGEN 63.6 mg/dL (7-18); CALCIUM 8.3 mg/dL (8.5-10.1)
[2025-03-09 07:13] LABS: MAGNESIUM 2.1 mg/dL (1.8-2.4)
[2025-03-09 07:16] LABS: CREATININE 0.7 mg/dL (0.55-1.3)
[2025-03-09 07:18] LABS: BILIRUBIN,TOTAL 0.5 mg/dL (0.2-1); TOT PROT 4.8 g/dl (6.4-8.2)
[2025-03-09 07:22] LABS: ALBUMIN 1.2 g/dl (3.4-5.0)
[2025-03-09] MEDS: METOPROLOL TARTRATE 5 MG/5 ML VIAL IVPUSH PRN (21:46)
[2025-03-09] MEDS: DEXTROSE 50%-WATER 25 GM/50 ML DISP.SYRIN IVPUSH ONE ×2 (21:55→23:35)
[2025-03-09] MEDS ORDERED: DEXTROSE 10%-WATER - 1,000 ML IV SCH ×2 (23:00→23:45)
[2025-03-10] MEDS: DEXTROSE 10%-WATER - 1,000 ML IV SCH (01:17)
[2025-03-10] MEDS: AMIODARONE HCL 200 MG TABLET PO ONE (01:39)
[2025-03-10 08:49] LABS: HEMOGLOBIN 8.2 g/dL (11.2-15.7); MCHC 31.5 g/dl (32.2-35.5); MEAN CELL VOLUME 87.2 fl (79.4-94.8); PLATELET COUNT 165 x10^3/uL (182-369); RDW 19.9 % (12.4-16.6)
[2025-03-10 09:07] LABS: CHLORIDE 113 mmol/L (98-107); POTASSIUM 5.2 mmol/L (3.5-5.1); SODIUM 146 mmol/L (136-145)
[2025-03-10 09:10] LABS: ALBUMIN 1.1 g/dl (3.4-5.0); ANION GAP 8 mmol/L (4-13); BLOOD UREA NITROGEN 59.3 mg/dL (7-18); CALCIUM 8.3 mg/dL (8.5-10.1); CO2 25 mmol/L (21-32); MAGNESIUM 2.2 mg/dL (1.8-2.4)
[2025-03-10 09:12] LABS: SGOT/AST 29 U/L (15-37); SGPT/ALT 29 U/L (13-61)
[2025-03-10 09:13] LABS: CREATININE 0.8 mg/dL (0.55-1.3); PHOSPHOROUS 3.3 mg/dL (2.5-4.9)
[2025-03-10 09:14] LABS: BILIRUBIN,TOTAL 0.8 mg/dL (0.2-1); TOT PROT 4.7 g/dl (6.4-8.2)
[2025-03-10 09:15] LABS: ALK PHOS 148 U/L (45-117)
[2025-03-10 09:29] LABS: GLUCOSE,RANDOM 465 mg/dL (74-106)
[2025-03-10] MEDS: FUROSEMIDE 40 MG/4 ML INJECTABLE VIAL IVPUSH ONE (13:29)
[2025-03-10] MEDS ORDERED: METOPROLOL TARTRATE 5 MG/5 ML VIAL IVPUSH PRN (15:51)
[2025-03-10] MEDS: METOPROLOL TARTRATE 25 MG TABLET (FP) NGT SCH (16:52)
[2025-03-10] MEDS ORDERED: METOPROLOL TARTRATE 5 MG/5 ML VIAL IVPUSH SCH (18:00)
[2025-03-10] MEDS: CHLORHEXIDINE GLUCONATE 4% CLEANSER FOR DECOLONIZATION TP SCH (21:53)
[2025-03-10] MEDS: AMIODARONE HCL 200 MG TABLET PO SCH (21:53)
[2025-03-10] MEDS: INSULIN ASPART SLIDING SCALE (NOVOLOG) 1 VIAL SQ SCH (21:53)
[2025-03-10] MEDS: MEROPENEM 500 MG in DEXTROSE 5%-WATER 100 ML IVPB SCH (21:53)
[2025-03-10] MEDS: ENOXAPARIN NA (PORCINE) 60 MG/0.6 ML DISP.SYRIN SQ SCH (21:53)
[2025-03-11 07:10] LABS: HEMATOCRIT 23.6 % (34.1-44.9); HEMOGLOBIN 7.3 g/dL (11.2-15.7); MCHC 30.9 g/dl (32.2-35.5); MEAN CELL VOLUME 87.1 fl (79.4-94.8); MEAN PLT VOLUME 13.9 fl (9.4-12.3); PLATELET COUNT 156 x10^3/uL (182-369); RDW 19.5 % (12.4-16.6)
[2025-03-11 07:32] LABS: POTASSIUM 4.8 mmol/L (3.5-5.1)
[2025-03-11 07:34] LABS: CALCIUM 8.4 mg/dL (8.5-10.1)
[2025-03-11 07:35] LABS: MAGNESIUM 2.2 mg/dL (1.8-2.4)
[2025-03-11 07:37] LABS: CREATININE 0.8 mg/dL (0.55-1.3)
[2025-03-11 07:38] LABS: PHOSPHOROUS 3.3 mg/dL (2.5-4.9)
[2025-03-11 07:39] LABS: BILIRUBIN,TOTAL 0.6 mg/dL (0.2-1); TOT PROT 4.8 g/dl (6.4-8.2)
[2025-03-11] MEDS: ACETYLCYSTEINE 20% 200MG/ML 4 ML VIAL *FOR ORAL / INH USE ONLY NEB SCH (08:54)
[2025-03-11] MEDS: ALBUTEROL SO4 0.083% IH SOL 2.5 MG/3 ML VIAL.NEB. NEB PRN (08:56)
[2025-03-11] MEDS: METOPROLOL TARTRATE 50 MG TABLET (FP) NGT SCH (10:03)
[2025-03-11] MEDS: INSULIN GLARGINE (LANTUS) 100 UNITS/ML UNITS SQ SCH (10:03)
[2025-03-11] MEDS: PANTOPRAZOLE SODIUM 40 MG VIAL IVPUSH SCH (10:03)
[2025-03-11] MEDS: FUROSEMIDE 40 MG/4 ML INJECTABLE VIAL IVPUSH ONE (10:03)
[2025-03-11] MEDS: ASPIRIN 81 MG CHEWABLE TABLETS PO SCH (10:03)
[2025-03-11] MEDS: CASPOFUNGIN ACETATE 50 MG in SODIUM CHLORIDE 250 ML IVPB SCH (10:04)
[2025-03-12] MEDS: IRON SUCROSE INJECTION 200 MG in SODIUM CHLORIDE 100 ML IVPB ONE (00:22)
[2025-03-12 07:36] LABS: HEMATOCRIT 22.6 % (34.1-44.9); MEAN CELL VOLUME 87.6 fl (79.4-94.8); MEAN PLT VOLUME 13.7 fl (9.4-12.3); PLATELET COUNT 152 x10^3/uL (182-369); RDW 19.4 % (12.4-16.6)
[2025-03-12 07:43] LABS: POTASSIUM 4.4 mmol/L (3.5-5.1)
[2025-03-12 07:47] LABS: BLOOD UREA NITROGEN 56.3 mg/dL (7-18)
[2025-03-12 07:50] LABS: CREATININE 0.7 mg/dL (0.55-1.3)
[2025-03-12 07:53] LABS: BILIRUBIN,TOTAL 0.5 mg/dL (0.2-1); TOT PROT 4.9 g/dl (6.4-8.2)
[2025-03-12] MEDS ORDERED: FUROSEMIDE 40 MG/4 ML INJECTABLE VIAL IVPUSH SCH (10:00)
[2025-03-12] MEDS ORDERED: DEXTROSE 50%-WATER 25 GM/50 ML DISP.SYRIN ONE (21:13)
[2025-03-12] MEDS: DEXTROSE 50%-WATER - 25 GM/50 ML VIAL IVPUSH PRN (21:17)
[2025-03-12] MEDS ORDERED: DEXTROSE 50%-WATER - 25 GM/50 ML VIAL IVPUSH PRN (22:00)
[2025-03-13 06:45] LABS: POTASSIUM 4.6 mmol/L (3.5-5.1)
[2025-03-13 06:47] LABS: BLOOD UREA NITROGEN 51.4 mg/dL (7-18); CALCIUM 8.8 mg/dL (8.5-10.1)
[2025-03-13 06:51] LABS: CREATININE 0.6 mg/dL (0.55-1.3)
[2025-03-13 06:52] LABS: BILIRUBIN,TOTAL 0.6 mg/dL (0.2-1); HEMOGLOBIN 10.6 g/dL (11.2-15.7); TOT PROT 5.2 g/dl (6.4-8.2)
[2025-03-13 06:54] LABS: ABSOLUTE IMMATURE GRANULOCYTES 0.18 x10^3/uL (0.0-0.031); BASOPHILS # 0.04 x10^3/uL (0.01-0.08); EOSINOPHIL % 2.2 % (0.7-5.8); HEMATOCRIT 32.8 % (34.1-44.9); MCHC 32.3 g/dl (32.2-35.5); MEAN CELL VOLUME 84.8 fl (79.4-94.8); MONOCYTE # 0.33 x10^3/uL (0.24-0.86); MONOCYTE % 2.5 % (4.7-12.5); PLATELET COUNT 137 x10^3/uL (182-369); RDW 17.2 % (12.4-16.6)
[2025-03-13] MEDS: ACETAMINOPHEN 1000 MG/100 ML BAG IVPB PRN (09:13)
[2025-03-13] MEDS: FUROSEMIDE 40 MG/4 ML INJECTABLE VIAL IVPUSH ONE (10:14)
[2025-03-13] MEDS ORDERED: ENOXAPARIN NA (PORCINE) 80 MG/0.8 ML DISP.SYRIN SQ SCH (10:30)
[2025-03-13] MEDS: SUCCINYLCHOLINE CHLORIDE 200 MG/10 ML VIAL IVPUSH ONE ×2 (13:40→13:45)
[2025-03-13] MEDS: PROPOFOL 200 MG/20 ML VIAL IVPUSH ONE (13:45)
[2025-03-13] MEDS ORDERED: NOREPINEPHRINE BITARTRATE 4 MG/4 ML ML IV ONE ×2 (14:01→17:50)
[2025-03-13] MEDS ORDERED: VASopressin 20 UNITS/ML VIAL IV ONE (15:04)
[2025-03-13] MEDS: VASopressin 40 UNITS/100 ML BAG IV SCH ×2 (15:10→18:44)
[2025-03-13] MEDS: DEXMEDETOMIDINE PREMIX 400 MCG/100 ML BAG IVPB SCH ×2 (15:15→15:30)
[2025-03-13 15:39] LABS: RDW 17.2 % (12.4-16.6)
[2025-03-13 15:41] LABS: HEMATOCRIT 28.2 % (34.1-44.9); HEMOGLOBIN 9.3 g/dL (11.2-15.7); MEAN CELL VOLUME 85.2 fl (79.4-94.8); MEAN PLT VOLUME 13.4 fl (9.4-12.3); PLATELET COUNT 138 x10^3/uL (182-369)
[2025-03-13 15:56] LABS: POTASSIUM 4.7 mmol/L (3.5-5.1)
[2025-03-13 15:59] LABS: ALBUMIN 0.8 g/dl (3.4-5.0); BLOOD UREA NITROGEN 55.7 mg/dL (7-18)
[2025-03-13 16:02] LABS: CREATININE 0.6 mg/dL (0.55-1.3)
[2025-03-13 16:03] LABS: PHOSPHOROUS 4.6 mg/dL (2.5-4.9)
[2025-03-13 16:04] LABS: BILIRUBIN,TOTAL 1.2 mg/dL (0.2-1); TOT PROT 4.2 g/dl (6.4-8.2)
[2025-03-13 16:17] LABS: ARTERIAL BLD GAS O2 SATURATION 94.3 % (95-98); ARTERIAL BLOOD GAS BASE EXCESS 4.4 mmol/L (-2-2); ARTERIAL BLOOD GAS PO2 62.1 mmHg (80-100); ARTERIAL BLOOD GAS pH 7.535 (7.350-7.450)
[2025-03-13 16:20] LABS: VENT RATE 20
[2025-03-13 16:25] LABS: LACTIC ACID 2.6 mmol/L (0.4-2.0)
[2025-03-13] MEDS: LACTATED RINGERS SOLUTION 1,000 ML/1,000 ML INFUS.BAG IV STA (16:46)
[2025-03-13] MEDS: FLUDROCORTISONE ACETATE 0.1 MG TABLET (FP) PO SCH (16:49)
[2025-03-13] MEDS ORDERED: ACETAMINOPHEN 1000 MG/100 ML BAG IVPB PRN (17:52)
[2025-03-13] MEDS ORDERED: METOPROLOL TARTRATE 5 MG/5 ML VIAL IVPUSH PRN (17:52)
[2025-03-13] MEDS: MIDAZOLAM HCL 5 MG/1 ML Single Dose Vial IVPUSH ONE (18:37)
[2025-03-13] MEDS: NOREPINEPHRINE BITARTRATE 4,000 MCG in DEXTROSE 5%-WATER - 496 ML IV SCH (18:39)
[2025-03-13] MEDS: LACTATED RINGERS SOLUTION 1,000 ML/1,000 ML INFUS.BAG IV SCH (18:40)
[2025-03-13] MEDS: NOREPINEPHRINE 0.9 % NACL 8 MG/250 ML BAG IVPB SCH ×2 (18:41→18:43)
[2025-03-13] MEDS: ALBUTEROL SO4 0.083% IH SOL 2.5 MG/3 ML VIAL.NEB. NEB SCH ×2 (18:43→20:00)
[2025-03-13] MEDS: HYDROCORTISONE SOD SUCCINATE 100 MG/2 ML VIAL IVPB SCH ×2 (18:43→23:46)
[2025-03-13] MEDS: ACETYLCYSTEINE 20% 200MG/ML 4 ML VIAL *FOR ORAL / INH USE ONLY NEB SCH (20:00)
[2025-03-13] MEDS: INSULIN ASPART SLIDING SCALE (NOVOLOG) 1 VIAL SQ SCH (21:25)
[2025-03-13] MEDS: ENOXAPARIN NA (PORCINE) 80 MG/0.8 ML DISP.SYRIN SQ SCH (21:25)
[2025-03-13] MEDS: INSULIN GLARGINE (LANTUS) 100 UNITS/ML UNITS SQ SCH (21:25)
[2025-03-13] MEDS: MUPIROCIN 2% TOPICAL OINTMENT FOR DECOLONIZATION NS SCH (21:26)
[2025-03-13] MEDS: AMIODARONE HCL 200 MG TABLET GT SCH (21:26)
[2025-03-13] MEDS: CHLORHEXIDINE GLUCONATE 4% CLEANSER FOR DECOLONIZATION TP SCH (21:26)
[2025-03-13] MEDS: METOPROLOL TARTRATE 50 MG TABLET (FP) NGT SCH (21:26)
[2025-03-13] MEDS: MEROPENEM 500 MG in DEXTROSE 5%-WATER 100 ML IVPB SCH (21:26)
[2025-03-13] MEDS ORDERED: CHLORHEXIDINE GLUCONATE 4% CLEANSER FOR DECOLONIZATION TP SCH (22:00)
[2025-03-13] MEDS: NOREPINEPHRINE BITARTRATE/D5W 8 MG/250 ML BAG IVPB SCH (23:46)
[2025-03-14 06:53] LABS: HEMATOCRIT 28.1 % (34.1-44.9); HEMOGLOBIN 9.5 g/dL (11.2-15.7); MCHC 33.8 g/dl (32.2-35.5); MEAN CELL VOLUME 83.6 fl (79.4-94.8); PLATELET COUNT 146 x10^3/uL (182-369); RDW 16.5 % (12.4-16.6)
[2025-03-14 07:13] LABS: POTASSIUM 4.7 mmol/L (3.5-5.1)
[2025-03-14 07:31] LABS: LACTIC ACID 2.3 mmol/L (0.4-2.0)
[2025-03-14 07:33] LABS: CALCIUM 8.8 mg/dL (8.5-10.1)
[2025-03-14 07:34] LABS: BLOOD UREA NITROGEN 51.4 mg/dL (7-18); MAGNESIUM 1.9 mg/dL (1.8-2.4)
[2025-03-14 07:37] LABS: CREATININE 0.6 mg/dL (0.55-1.3); PHOSPHOROUS 3.8 mg/dL (2.5-4.9)
[2025-03-14 07:38] LABS: BILIRUBIN,TOTAL 1.2 mg/dL (0.2-1)
[2025-03-14] MEDS: VASopressin 40 UNITS/100 ML BAG IV SCH (09:31)
[2025-03-14] MEDS: PANTOPRAZOLE SODIUM 40 MG VIAL IVPUSH SCH (09:32)
[2025-03-14] MEDS: MIDODRINE HCL 2.5 MG TABLET NGT SCH (09:39)
[2025-03-14] MEDS: FLUDROCORTISONE ACETATE 0.1 MG TABLET (FP) NGT SCH (09:39)
[2025-03-14] MEDS: CASPOFUNGIN ACETATE 50 MG in SODIUM CHLORIDE 250 ML IVPB SCH (09:53)
[2025-03-14] MEDS: ASPIRIN 81 MG CHEWABLE TABLETS GT SCH (09:53)
[2025-03-14] MEDS ORDERED: FLUDROCORTISONE ACETATE 0.1 MG TABLET (FP) GT SCH (10:00)
[2025-03-14] MEDS ORDERED: MIDODRINE HCL 2.5 MG TABLET PO SCH (10:00)
[2025-03-14 11:17] LABS: LACTIC ACID 2.1 mmol/L (0.4-2.0)
[2025-03-14 11:46] LABS: VENOUS BASE EXCESS 3.9 mmol/L (-2-2); VENOUS O2 SATURATION 97.1 % (70-80); VENOUS PCO2 27.8 mmHg (38-52); VENOUS PH 7.577 (7.310-7.410)
[2025-03-14] MEDS: HYDROCORTISONE SOD SUCCINATE 100 MG/2 ML VIAL IVPB SCH (13:48)
[2025-03-14] MEDS: AMIODARONE HCL 200 MG TABLET GT ONE (14:09)
[2025-03-14] MEDS: MAGNESIUM 2GM/50ML STERILE WATER IVPB IVPB ONE (16:10)
[2025-03-14 17:35] LABS: POTASSIUM 4.2 mmol/L (3.5-5.1)
[2025-03-14 17:37] LABS: CALCIUM 8.9 mg/dL (8.5-10.1)
[2025-03-14 17:38] LABS: BLOOD UREA NITROGEN 52.4 mg/dL (7-18)
[2025-03-14 17:41] LABS: CREATININE 0.7 mg/dL (0.55-1.3)
[2025-03-14 22:32] LABS: ARTERIAL BLD GAS O2 SATURATION 96.7 % (95-98); ARTERIAL BLOOD GAS BASE EXCESS 3.4 mmol/L (-2-2); ARTERIAL BLOOD GAS PO2 77.1 mmHg (80-100); ARTERIAL BLOOD GAS pH 7.526 (7.350-7.450); O2 CONTENT 1.77 % vol
[2025-03-14 22:38] LABS: VENT MODE A/C; VENT RATE 20
[2025-03-15 03:21] LABS: MCHC 32.5 g/dl (32.2-35.5)
[2025-03-15 03:23] LABS: HEMATOCRIT 27.7 % (34.1-44.9); MEAN CELL VOLUME 86.8 fl (79.4-94.8); MEAN PLT VOLUME 13.1 fl (9.4-12.3); PLATELET COUNT 131 x10^3/uL (182-369); RDW 17.1 % (12.4-16.6)
[2025-03-15] MEDS: MAGNESIUM SULF 50% (8.12 MEQ/2 ML-1 GM VIAL) IVPB ONE (04:01)
[2025-03-15 05:40] LABS: POTASSIUM 4.3 mmol/L (3.5-5.1)
[2025-03-15 06:37] LABS: ARTERIAL BLD GAS O2 SATURATION 98.2 % (95-98); ARTERIAL BLOOD GAS BASE EXCESS 0.8 mmol/L (-2-2); ARTERIAL BLOOD GAS PO2 105.8 mmHg (80-100); ARTERIAL BLOOD GAS pH 7.484 (7.350-7.450); O2 CONTENT 1.25 % vol
[2025-03-15 06:54] LABS: VENT MODE A/C; VENT RATE 16
[2025-03-15 06:54] LABS: BILIRUBIN,TOTAL 0.7 mg/dL (0.2-1); BLOOD UREA NITROGEN 52.3 mg/dL (7-18); CALCIUM 8.3 mg/dL (8.5-10.1); CREATININE 0.6 mg/dL (0.55-1.3); TOT PROT 4.9 g/dl (6.4-8.2)
[2025-03-15] MEDS: AMIODARONE HCL 200 MG TABLET GT SCH (09:22)
[2025-03-15 09:49] LABS: MAGNESIUM 2.8 mg/dL (1.8-2.4)
[2025-03-15 09:53] LABS: PHOSPHOROUS 4.8 mg/dL (2.5-4.9)
[2025-03-15] MEDS: HYDROCORTISONE SOD SUCCINATE 100 MG/2 ML VIAL IVPB SCH (10:30)
[2025-03-16 06:28] LABS: URINE APPEARANCE CLOUDY; URINE BILIRUBIN NEGATIVE (NEGATIVE); URINE COLOR YELLOW; URINE GLUCOSE (UA) NEGATIVE (NEGATIVE); URINE KETONE NEGATIVE (NEGATIVE); URINE LEUK ESTERASE NEGATIVE (NEGATIVE); URINE NITRITE NEGATIVE (NEGATIVE); URINE PROTEIN TRACE (NEGATIVE); URINE UROBILINOGEN 0.2 mg/dL (0.2-1.0)
[2025-03-16 06:38] LABS: HEMATOCRIT 31.4 % (34.1-44.9); HEMOGLOBIN 9.7 g/dL (11.2-15.7); MCHC 30.9 g/dl (32.2-35.5); MEAN PLT VOLUME 12.3 fl (9.4-12.3); PLATELET COUNT 157 x10^3/uL (182-369); RDW 18.4 % (12.4-16.6)
[2025-03-16 06:56] LABS: POTASSIUM 4.3 mmol/L (3.5-5.1)
[2025-03-16 06:58] LABS: ALBUMIN 1.2 g/dl (3.4-5.0); BLOOD UREA NITROGEN 59.1 mg/dL (7-18); CALCIUM 9.1 mg/dL (8.5-10.1); MAGNESIUM 2.6 mg/dL (1.8-2.4)
[2025-03-16 07:01] LABS: CREATININE 0.8 mg/dL (0.55-1.3)
[2025-03-16 07:02] LABS: PHOSPHOROUS 5.7 mg/dL (2.5-4.9)
[2025-03-16 07:03] LABS: BILIRUBIN,TOTAL 0.5 mg/dL (0.2-1); TOT PROT 5.5 g/dl (6.4-8.2)
[2025-03-16] MEDS: FUROSEMIDE 40 MG/4 ML INJECTABLE VIAL IVPUSH ONE (11:44)
[2025-03-16] MEDS: DEXTROSE 50%-WATER 25 GM/50 ML DISP.SYRIN IVPUSH PRN (22:50)
[2025-03-17 07:56] LABS: MEAN PLT VOLUME 12.9 fl (9.4-12.3); RDW 18.6 % (12.4-16.6)
[2025-03-17 07:58] LABS: HEMATOCRIT 31.6 % (34.1-44.9); HEMOGLOBIN 9.8 g/dL (11.2-15.7); MEAN CELL VOLUME 91.3 fl (79.4-94.8); PLATELET COUNT 156 x10^3/uL (182-369)
[2025-03-17 08:26] LABS: POTASSIUM 3.9 mmol/L (3.5-5.1)
[2025-03-17 08:51] LABS: ALBUMIN 1.2 g/dl (3.4-5.0); BILIRUBIN,TOTAL 0.4 mg/dL (0.2-1); BLOOD UREA NITROGEN 56.3 mg/dL (7-18); CALCIUM 9.1 mg/dL (8.5-10.1); CREATININE 0.7 mg/dL (0.55-1.3); TOT PROT 5.5 g/dl (6.4-8.2)
[2025-03-17 08:52] LABS: MAGNESIUM 2.6 mg/dL (1.8-2.4)
[2025-03-17] MEDS: MIDODRINE HCL 5 MG TABLET PO SCH (14:18)
[2025-03-18 06:55] LABS: HEMATOCRIT 31.4 % (34.1-44.9); HEMOGLOBIN 9.3 g/dL (11.2-15.7); MCHC 29.6 g/dl (32.2-35.5); MEAN PLT VOLUME 13.3 fl (9.4-12.3); PLATELET COUNT 169 x10^3/uL (182-369); RDW 18.5 % (12.4-16.6)
[2025-03-18 06:56] LABS: HEMATOCRIT 31.4 % (34.1-44.9); MCHC 29.6 g/dl (32.2-35.5); MEAN PLT VOLUME 13.4 fl (9.4-12.3); PLATELET COUNT 170 x10^3/uL (182-369); RDW 18.4 % (12.4-16.6)
[2025-03-18 07:50] LABS: ALBUMIN 1.3 g/dl (3.4-5.0); BILIRUBIN,TOTAL 0.4 mg/dL (0.2-1); BLOOD UREA NITROGEN 63.6 mg/dL (7-18); CALCIUM 9.1 mg/dL (8.5-10.1); CREATININE 0.9 mg/dL (0.55-1.3); MAGNESIUM 2.4 mg/dL (1.8-2.4); PHOSPHOROUS 5.5 mg/dL (2.5-4.9); POTASSIUM 3.6 mmol/L (3.5-5.1); TOT PROT 5.2 g/dl (6.4-8.2)
[2025-03-18] MEDS: HYDROCORTISONE SOD SUCCINATE 100 MG/2 ML VIAL IVPB SCH (11:55)
[2025-03-18] MEDS: ALBUMIN HUMAN 5% 500 ML IV SOLUTION IV ONE (14:24)
[2025-03-18] MEDS: CALCIUM ACETATE 667 MG CAPSULE (FP) PO SCH (14:27)
[2025-03-18] MEDS ORDERED: ALBUTEROL SO4 0.5 % INH SOLN 2.5 MG/0.5 ML VIAL.NEB. NEB ONE (20:14)
[2025-03-19 06:49] LABS: HEMATOCRIT 24.7 % (34.1-44.9); HEMOGLOBIN 7.9 g/dL (11.2-15.7); MEAN CELL VOLUME 91.8 fl (79.4-94.8); MEAN PLT VOLUME 13.1 fl (9.4-12.3); PLATELET COUNT 138 x10^3/uL (182-369); RDW 18.4 % (12.4-16.6)
[2025-03-19 07:08] LABS: MAGNESIUM 2.3 mg/dL (1.8-2.4)
[2025-03-19 07:11] LABS: PHOSPHOROUS 3.9 mg/dL (2.5-4.9)
[2025-03-19] MEDS: POTASSIUM CHLORIDE ORAL LIQUID 20 MEQ/15 ML PO ONE (08:00)
[2025-03-19] MEDS: HYDROCORTISONE SOD SUCCINATE 100 MG/2 ML VIAL IVPB SCH (10:00)
[2025-03-19] MEDS: POTASSIUM CHLORIDE ORAL LIQUID 20 MEQ/15 ML NGT ONE (10:42)
[2025-03-19] MEDS: MIDODRINE HCL 5 MG TABLET PO SCH (10:43)
[2025-03-19] MEDS: ALBUTEROL SO4 0.083% IH SOL 2.5 MG/3 ML VIAL.NEB. NEB SCH (12:06)
[2025-03-19 17:39] LABS: POTASSIUM 4.5 mmol/L (3.5-5.1)
[2025-03-19 18:21] LABS: ALBUMIN 4.4 g/dl (3.4-5.0); BILIRUBIN,TOTAL 1.5 mg/dL (0.2-1); BLOOD UREA NITROGEN 15.5 mg/dL (7-18); CALCIUM 10.2 mg/dL (8.5-10.1); TOT PROT 7.6 g/dl (6.4-8.2)
[2025-03-19] MEDS: FLUCONAZOLE 40 MG/ML SUSPENSION NGT SCH (19:48)
[2025-03-20 07:04] LABS: HEMOGLOBIN 7.7 g/dL (11.2-15.7); MEAN PLT VOLUME 12.9 fl (9.4-12.3)
[2025-03-20 07:05] LABS: HEMATOCRIT 24.3 % (34.1-44.9); MCHC 31.7 g/dl (32.2-35.5); PLATELET COUNT 132 x10^3/uL (182-369); RDW 18.6 % (12.4-16.6)
[2025-03-20 07:14] LABS: INR 1.11 (0.83-1.09); PROTHROMBIN TIME (PATIENT) 12.2 SEC (9.7-13.0)
[2025-03-20 07:21] LABS: POTASSIUM 3.6 mmol/L (3.5-5.1)
[2025-03-20 07:28] LABS: CALCIUM 8.8 mg/dL (8.5-10.1)
[2025-03-20 07:30] LABS: ALBUMIN 1.7 g/dl (3.4-5.0); BLOOD UREA NITROGEN 50.9 mg/dL (7-18); MAGNESIUM 2.2 mg/dL (1.8-2.4)
[2025-03-20 07:33] LABS: BILIRUBIN,TOTAL 0.5 mg/dL (0.2-1); CREATININE 0.5 mg/dL (0.55-1.3); PHOSPHOROUS 2.9 mg/dL (2.5-4.9); TOT PROT 4.8 g/dl (6.4-8.2)
[2025-03-20] MEDS: PROPOFOL 1,000,000 MCG/100 ML VIAL IVPB SCH (12:12)
[2025-03-20] MEDS ORDERED: ROCURONIUM BROMIDE 50 MG/5 ML VIAL ONE (16:18)
[2025-03-20] MEDS ORDERED: NOREPINEPHRINE BITARTRATE 4 MG/4 ML ML IV ONE (17:04)
[2025-03-20] MEDS: ROCURONIUM BROMIDE 50 MG/5 ML VIAL IVPUSH ONE (17:29)
[2025-03-20] MEDS: MIDAZOLAM HCL 5 MG/1 ML Single Dose Vial IVPUSH ONE (17:30)
[2025-03-20] MEDS: LACTATED RINGERS SOLUTION 1,000 ML/1,000 ML INFUS.BAG IV ONE (19:00)
[2025-03-20] MEDS: NOREPINEPHRINE 0.9 % NACL 8 MG/250 ML BAG IVPB SCH (19:00)
[2025-03-20] MEDS: morphine SULFATE 4 MG/ML VIAL IVPUSH ONE (19:22)
[2025-03-21 07:03] LABS: BASOPHILS # 0.01 x10^3/uL (0.01-0.08); HEMATOCRIT 26.3 % (34.1-44.9); HEMOGLOBIN 8.2 g/dL (11.2-15.7); MCHC 31.2 g/dl (32.2-35.5); RDW 19.3 % (12.4-16.6)
[2025-03-21 07:05] LABS: ABSOLUTE IMMATURE GRANULOCYTES 0.05 x10^3/uL (0.0-0.031); EOSINOPHIL % 2.8 % (0.7-5.8); EOSINOPHILS # 0.12 x10^3/uL (0.04-0.36); MEAN CELL VOLUME 92.3 fl (79.4-94.8); MEAN PLT VOLUME 13.5 fl (9.4-12.3); MONOCYTE # 0.26 x10^3/uL (0.24-0.86); MONOCYTE % 6.1 % (4.7-12.5); PLATELET COUNT 129 x10^3/uL (182-369)
[2025-03-21 07:16] LABS: POTASSIUM 3.7 mmol/L (3.5-5.1)
[2025-03-21 07:26] LABS: CALCIUM 8.7 mg/dL (8.5-10.1)
[2025-03-21 07:27] LABS: ALBUMIN 1.7 g/dl (3.4-5.0); BLOOD UREA NITROGEN 44.3 mg/dL (7-18); MAGNESIUM 2.1 mg/dL (1.8-2.4)
[2025-03-21 07:30] LABS: CREATININE 0.4 mg/dL (0.55-1.3)
[2025-03-21 07:31] LABS: PHOSPHOROUS 2.6 mg/dL (2.5-4.9)
[2025-03-21 07:32] LABS: BILIRUBIN,TOTAL 0.5 mg/dL (0.2-1)
[2025-03-21 07:39] LABS: TOT PROT 4.8 g/dl (6.4-8.2)
[2025-03-22 06:53] LABS: ABSOLUTE IMMATURE GRANULOCYTES 0.12 x10^3/uL (0.0-0.031)
[2025-03-22 06:55] LABS: BASOPHILS # 0.02 x10^3/uL (0.01-0.08); EOSINOPHIL % 3.5 % (0.7-5.8); EOSINOPHILS # 0.24 x10^3/uL (0.04-0.36); HEMATOCRIT 27.2 % (34.1-44.9); HEMOGLOBIN 8.3 g/dL (11.2-15.7); MCHC 30.5 g/dl (32.2-35.5); MEAN CELL VOLUME 94.8 fl (79.4-94.8); MEAN PLT VOLUME 12.5 fl (9.4-12.3); MONOCYTE # 0.34 x10^3/uL (0.24-0.86); PLATELET COUNT 164 x10^3/uL (182-369); RDW 20.4 % (12.4-16.6)
[2025-03-22 07:18] LABS: POTASSIUM 4.1 mmol/L (3.5-5.1)
[2025-03-22 07:42] LABS: ALBUMIN 1.7 g/dl (3.4-5.0); BILIRUBIN,TOTAL 0.5 mg/dL (0.2-1); BLOOD UREA NITROGEN 39.6 mg/dL (7-18); CALCIUM 8.5 mg/dL (8.5-10.1); CREATININE 0.5 mg/dL (0.55-1.3); MAGNESIUM 2.1 mg/dL (1.8-2.4); PHOSPHOROUS 2.6 mg/dL (2.5-4.9)
[2025-03-22] MEDS ORDERED: DEXTROSE 50%-WATER 25 GM/50 ML DISP.SYRIN ONE (16:32)
[2025-03-22] MEDS: LABETALOL HCL 20 MG/4 ML VIAL IVPUSH ONE (19:43)
[2025-03-22] MEDS: PROPOFOL 200 MG/20 ML VIAL IVPUSH ONE (19:43)
[2025-03-22] MEDS: ACETYLCYSTEINE 20% 200MG/ML 4 ML VIAL *FOR ORAL / INH USE ONLY NEB SCH (20:14)
[2025-03-22] MEDS: ALBUTEROL SO4 0.083% IH SOL 2.5 MG/3 ML VIAL.NEB. NEB SCH (20:15)
[2025-03-22] MEDS: ENOXAPARIN NA (PORCINE) 80 MG/0.8 ML DISP.SYRIN SQ SCH (22:16)
[2025-03-22] MEDS: INSULIN ASPART SLIDING SCALE (NOVOLOG) 1 VIAL SQ SCH (22:16)
[2025-03-22] MEDS: CHLORHEXIDINE GLUCONATE 4% CLEANSER FOR DECOLONIZATION TP SCH (22:16)
[2025-03-23] MEDS: DEXTROSE 50%-WATER 25 GM/50 ML DISP.SYRIN IVPUSH PRN (05:35)
[2025-03-23 06:31] LABS: HEMATOCRIT 25.1 % (34.1-44.9); HEMOGLOBIN 7.8 g/dL (11.2-15.7); MCHC 31.1 g/dl (32.2-35.5); MEAN CELL VOLUME 95.8 fl (79.4-94.8); MEAN PLT VOLUME 12.4 fl (9.4-12.3); PLATELET COUNT 137 x10^3/uL (182-369); RDW 20.8 % (12.4-16.6)
[2025-03-23] MEDS ORDERED: INSULIN ASPART SLIDING SCALE (NOVOLOG) 1 VIAL SQ ONE (06:42)
[2025-03-23 09:08] LABS: POTASSIUM 4.4 mmol/L (3.5-5.1)
[2025-03-23 10:03] LABS: ALBUMIN 1.5 g/dl (3.4-5.0); BLOOD UREA NITROGEN 41.4 mg/dL (7-18); MAGNESIUM 2.2 mg/dL (1.8-2.4)
[2025-03-23 10:06] LABS: CREATININE 0.5 mg/dL (0.55-1.3); PHOSPHOROUS 2.4 mg/dL (2.5-4.9)
[2025-03-23 10:07] LABS: BILIRUBIN,TOTAL 0.4 mg/dL (0.2-1)
[2025-03-23 10:08] LABS: TOT PROT 4.7 g/dl (6.4-8.2)
[2025-03-23] MEDS: PANTOPRAZOLE SODIUM 40 MG VIAL IVPUSH SCH (10:39)
[2025-03-23] MEDS: AMIODARONE HCL 200 MG TABLET GT SCH (10:40)
[2025-03-23] MEDS: FLUCONAZOLE 40 MG/ML SUSPENSION NGT SCH (10:40)
[2025-03-23] MEDS: ASPIRIN 81 MG CHEWABLE TABLETS GT SCH (10:40)
[2025-03-23] MEDS ORDERED: ACETYLCYSTEINE 20% 200MG/ML 4 ML VIAL *FOR ORAL / INH USE ONLY ONE (19:16)
[2025-03-23] MEDS: INSULIN GLARGINE (LANTUS) 100 UNITS/ML UNITS SQ SCH (21:12)
[2025-03-24 07:21] LABS: HEMATOCRIT 24.2 % (34.1-44.9); HEMOGLOBIN 7.2 g/dL (11.2-15.7); MCHC 29.8 g/dl (32.2-35.5); MEAN CELL VOLUME 96.8 fl (79.4-94.8); MEAN PLT VOLUME 13.1 fl (9.4-12.3); PLATELET COUNT 142 x10^3/uL (182-369); RDW 20.8 % (12.4-16.6)
[2025-03-24 07:46] LABS: BLOOD UREA NITROGEN 38.3 mg/dL (7-18); CALCIUM 8.7 mg/dL (8.5-10.1); CREATININE 0.4 mg/dL (0.55-1.3); MAGNESIUM 2.2 mg/dL (1.8-2.4); PHOSPHOROUS 2.1 mg/dL (2.5-4.9); POTASSIUM 4.7 mmol/L (3.5-5.1)
[2025-03-25 07:11] LABS: MAGNESIUM 2.2 mg/dL (1.8-2.4)
[2025-03-25 07:14] LABS: PHOSPHOROUS 2.3 mg/dL (2.5-4.9)
[2025-03-25 07:17] LABS: HEMATOCRIT 22.2 % (34.1-44.9); HEMOGLOBIN 6.5 g/dL (11.2-15.7); MCHC 29.3 g/dl (32.2-35.5); MEAN CELL VOLUME 98.2 fl (79.4-94.8); MEAN PLT VOLUME 12.6 fl (9.4-12.3); PLATELET COUNT 139 x10^3/uL (182-369); RDW 21.6 % (12.4-16.6)
[2025-03-25] MEDS: ACETAMINOPHEN 1000 MG/100 ML BAG IVPB PRN (09:26)
[2025-03-25] MEDS: AMINO ACIDS/PROTEIN HYDROLYS 30 ML LIQUID.PKT NGT SCH (09:26)
[2025-03-25] MEDS: FUROSEMIDE 40 MG/4 ML INJECTABLE VIAL IVPUSH ONE (15:07)
[2025-03-26] MEDS: amLODIPine BESYLATE 5 MG TABLET (FP) NGT ONE (00:30)
[2025-03-26 06:47] LABS: BASOPHILS # 0.02 x10^3/uL (0.01-0.08); RDW 19.9 % (12.4-16.6)
[2025-03-26 06:48] LABS: ABSOLUTE IMMATURE GRANULOCYTES 0.36 x10^3/uL (0.0-0.031); EOSINOPHIL % 1.4 % (0.7-5.8); EOSINOPHILS # 0.11 x10^3/uL (0.04-0.36); HEMATOCRIT 26.1 % (34.1-44.9); HEMOGLOBIN 7.8 g/dL (11.2-15.7); MCHC 29.9 g/dl (32.2-35.5); MEAN CELL VOLUME 96.7 fl (79.4-94.8); MEAN PLT VOLUME 13.2 fl (9.4-12.3); MONOCYTE # 0.46 x10^3/uL (0.24-0.86); MONOCYTE % 5.9 % (4.7-12.5); PLATELET COUNT 154 x10^3/uL (182-369)
[2025-03-26 07:16] LABS: POTASSIUM 5.7 mmol/L (3.5-5.1)
[2025-03-26 07:18] LABS: ALBUMIN 1.4 g/dl (3.4-5.0); BLOOD UREA NITROGEN 40.7 mg/dL (7-18); CALCIUM 8.5 mg/dL (8.5-10.1)
[2025-03-26 07:21] LABS: CREATININE 0.4 mg/dL (0.55-1.3)
[2025-03-26 07:23] LABS: BILIRUBIN,TOTAL 0.5 mg/dL (0.2-1); TOT PROT 4.6 g/dl (6.4-8.2)
[2025-03-26] MEDS: SODIUM ZIRCONIUM CYCLOSILICATE (LOKELMA) 5 GM PACKET PO SCH (12:21)
[2025-03-26] MEDS: FUROSEMIDE 40 MG/5 ML UNIT-DOSE CUP NGT ONE (12:35)
[2025-03-27 06:19] LABS: MEAN CELL VOLUME 98.6 fl (79.4-94.8); RDW 20.5 % (12.4-16.6)
[2025-03-27 06:20] LABS: HEMATOCRIT 27.9 % (34.1-44.9); HEMOGLOBIN 8.3 g/dL (11.2-15.7); MCHC 29.7 g/dl (32.2-35.5); MEAN PLT VOLUME 12.1 fl (9.4-12.3); PLATELET COUNT 148 x10^3/uL (182-369)
[2025-03-27 07:11] LABS: ALBUMIN 1.4 g/dl (3.4-5.0); BILIRUBIN,TOTAL 0.4 mg/dL (0.2-1); BLOOD UREA NITROGEN 43.2 mg/dL (7-18); CALCIUM 8.6 mg/dL (8.5-10.1); CREATININE 0.4 mg/dL (0.55-1.3); POTASSIUM 5.5 mmol/L (3.5-5.1); TOT PROT 4.8 g/dl (6.4-8.2)
[2025-03-27] MEDS ORDERED: LISINOPRIL 5 MG TABLET NGT SCH (10:00)
[2025-03-27] MEDS: amLODIPine BESYLATE 5 MG TABLET (FP) NGT SCH (10:35)
[2025-03-27] MEDS ORDERED: INSULIN ASPART SLIDING SCALE (NOVOLOG) 1 VIAL SQ ONE (19:14)
[2025-03-28 06:31] LABS: ABSOLUTE IMMATURE GRANULOCYTES 0.17 x10^3/uL (0.0-0.031); EOSINOPHIL % 0.6 % (0.7-5.8)
[2025-03-28 06:33] LABS: BASOPHILS # 0.02 x10^3/uL (0.01-0.08); EOSINOPHILS # 0.06 x10^3/uL (0.04-0.36); HEMATOCRIT 26.1 % (34.1-44.9); MCHC 30.7 g/dl (32.2-35.5); MEAN PLT VOLUME 12.6 fl (9.4-12.3); MONOCYTE # 0.63 x10^3/uL (0.24-0.86); MONOCYTE % 5.8 % (4.7-12.5); PLATELET COUNT 166 x10^3/uL (182-369); RDW 20.5 % (12.4-16.6)
[2025-03-28 06:56] LABS: POTASSIUM 5.2 mmol/L (3.5-5.1)
[2025-03-28 06:58] LABS: CALCIUM 8.2 mg/dL (8.5-10.1)
[2025-03-28 06:59] LABS: ALBUMIN 1.3 g/dl (3.4-5.0); BLOOD UREA NITROGEN 36.5 mg/dL (7-18)
[2025-03-28 07:02] LABS: CREATININE 0.3 mg/dL (0.55-1.3)
[2025-03-28 07:03] LABS: BILIRUBIN,TOTAL 0.3 mg/dL (0.2-1)
[2025-03-28 07:04] LABS: TOT PROT 4.6 g/dl (6.4-8.2)
[2025-03-28] MEDS: ZINC SULFATE 220 MG CAPSULE (FP) NGT SCH (09:17)
[2025-03-28] MEDS: SODIUM ZIRCONIUM CYCLOSILICATE (LOKELMA) 5 GM PACKET PO SCH (15:31)
[2025-03-28] MEDS: IOHEXOL (OMNIPAQUE IV) 350 MG/ML - 100 ML BOTTLE NGT ONE (18:03)
[2025-03-28] MEDS: BANATROL PLUS POWDER PACKET PO SCH (21:03)
[2025-03-29 06:15] LABS: RDW 20.5 % (12.4-16.6)
[2025-03-29 06:17] LABS: HEMATOCRIT 27.2 % (34.1-44.9); HEMOGLOBIN 8.1 g/dL (11.2-15.7); MCHC 29.8 g/dl (32.2-35.5); MEAN CELL VOLUME 100.4 fl (79.4-94.8); PLATELET COUNT 154 x10^3/uL (182-369)
[2025-03-29 06:59] LABS: POTASSIUM 5.3 mmol/L (3.5-5.1)
[2025-03-29 07:03] LABS: ALBUMIN 1.4 g/dl (3.4-5.0); BLOOD UREA NITROGEN 34.2 mg/dL (7-18)
[2025-03-29 07:06] LABS: CREATININE 0.3 mg/dL (0.55-1.3)
[2025-03-29 07:08] LABS: BILIRUBIN,TOTAL 0.4 mg/dL (0.2-1); TOT PROT 4.8 g/dl (6.4-8.2)
[2025-03-29] MEDS ORDERED: ALBUTEROL SO4 0.083% IH SOL 2.5 MG/3 ML VIAL.NEB. NEB ONE (20:31)
[2025-03-30 06:52] LABS: HEMATOCRIT 25.3 % (34.1-44.9); HEMOGLOBIN 7.4 g/dL (11.2-15.7); MCHC 29.2 g/dl (32.2-35.5); RDW 20.6 % (12.4-16.6)
[2025-03-30 06:54] LABS: MEAN CELL VOLUME 101.2 fl (79.4-94.8); MEAN PLT VOLUME 12.4 fl (9.4-12.3); PLATELET COUNT 153 x10^3/uL (182-369)
[2025-03-30 07:21] LABS: INR 1.09 (0.83-1.09)
[2025-03-30 07:28] LABS: POTASSIUM 5.7 mmol/L (3.5-5.1)
[2025-03-30 07:30] LABS: CALCIUM 8.6 mg/dL (8.5-10.1)
[2025-03-30 07:31] LABS: ALBUMIN 1.4 g/dl (3.4-5.0); BLOOD UREA NITROGEN 33.3 mg/dL (7-18)
[2025-03-30 07:34] LABS: CREATININE 0.2 mg/dL (0.55-1.3)
[2025-03-30 07:35] LABS: BILIRUBIN,TOTAL 0.3 mg/dL (0.2-1)
[2025-03-30 07:36] LABS: TOT PROT 4.8 g/dl (6.4-8.2)
[2025-03-30] MEDS: SODIUM ZIRCONIUM CYCLOSILICATE (LOKELMA) 5 GM PACKET PO SCH (08:36)
[2025-03-30 19:22] LABS: MCHC 29.5 g/dl (32.2-35.5)
[2025-03-30 19:23] LABS: HEMATOCRIT 24.1 % (34.1-44.9); HEMOGLOBIN 7.1 g/dL (11.2-15.7); MEAN CELL VOLUME 102.1 fl (79.4-94.8); MEAN PLT VOLUME 11.6 fl (9.4-12.3); PLATELET COUNT 145 x10^3/uL (182-369); RDW 20.6 % (12.4-16.6)
[2025-03-30 19:42] LABS: CALCIUM 8.7 mg/dL (8.5-10.1)
[2025-03-30 19:46] LABS: CREATININE 0.3 mg/dL (0.55-1.3)
[2025-03-30 19:47] LABS: IRON SERUM 42 ug/dL (50-175); TOTAL IRON BINDING CAPACITY 148 ug/dL (250-450)
[2025-03-31 06:34] LABS: MCHC 29.2 g/dl (32.2-35.5); MEAN CELL VOLUME 102.1 fl (79.4-94.8); MEAN PLT VOLUME 12.2 fl (9.4-12.3); PLATELET COUNT 166 x10^3/uL (182-369)
[2025-03-31] MEDS ORDERED: ATROPINE SULFATE 1 MG/10 ML DISP.SYRIN ONE (12:31)
[2025-03-31] MEDS ORDERED: DOPAMINE 400 MG/D5W - 400,000 MCG/250 ML INFUS.BAG IVPB ONE (12:40)
[2025-03-31] MEDS: DOPAMINE 400 MG/D5W - 400,000 MCG/250 ML INFUS.BAG IVPB SCH ×2 (12:49→14:52)
[2025-03-31] MEDS: ATROPINE SULFATE 1 MG/10 ML DISP.SYRIN IVPUSH ONE ×2 (12:49)
[2025-03-31 15:01] LABS: ARTERIAL BLD GAS O2 SATURATION 80.1 % (95-98); ARTERIAL BLOOD GAS PO2 44.8 mmHg (80-100); O2 CONTENT 0.92 % vol
[2025-03-31 15:03] LABS: VENT MODE A/C; VENT RATE 16
[2025-03-31] MEDS: ALBUTEROL SO4 0.083% IH SOL 2.5 MG/3 ML VIAL.NEB. NEB SCH (15:39)
[2025-03-31] MEDS ORDERED: FUROSEMIDE 40 MG/4 ML INJECTABLE VIAL IVPUSH ONE (16:00)
[2025-03-31] MEDS: INSULIN ASPART SLIDING SCALE (NOVOLOG) 1 VIAL SQ SCH (17:45)
[2025-03-31] MEDS: FUROSEMIDE 40 MG/4 ML INJECTABLE VIAL IVPUSH ONE (18:23)
[2025-03-31 19:30] LABS: POTASSIUM 4.9 mmol/L (3.5-5.1)
[2025-03-31 19:33] LABS: ALBUMIN 1.5 g/dl (3.4-5.0); BLOOD UREA NITROGEN 42.3 mg/dL (7-18); CALCIUM 9.3 mg/dL (8.5-10.1)
[2025-03-31 19:36] LABS: CREATININE 0.4 mg/dL (0.55-1.3)
[2025-03-31 19:37] LABS: BILIRUBIN,TOTAL 0.6 mg/dL (0.2-1)
[2025-03-31 19:53] LABS: LACTIC ACID 3.3 mmol/L (0.4-2.0)
[2025-03-31] MEDS ORDERED: CHLORHEXIDINE GLUCONATE 4% CLEANSER FOR DECOLONIZATION TP SCH ×2 (22:00)
[2025-03-31] MEDS ORDERED: MUPIROCIN 2% TOPICAL OINTMENT FOR DECOLONIZATION NS SCH (22:00)
[2025-03-31] MEDS: MUPIROCIN 2% TOPICAL OINTMENT FOR DECOLONIZATION NS SCH (22:09)
[2025-03-31] MEDS: BANATROL PLUS POWDER PACKET GT SCH (22:09)
[2025-03-31] MEDS: CHLORHEXIDINE GLUCONATE 4% CLEANSER FOR DECOLONIZATION TP SCH (22:09)
[2025-03-31] MEDS: INSULIN GLARGINE (LANTUS) 100 UNITS/ML UNITS SQ SCH (22:59)
[2025-03-31 23:51] LABS: HEMATOCRIT 25.9 % (34.1-44.9); HEMOGLOBIN 8.3 g/dL (11.2-15.7); MEAN CELL VOLUME 95.6 fl (79.4-94.8); MEAN PLT VOLUME 11.7 fl (9.4-12.3); PLATELET COUNT 171 x10^3/uL (182-369); RDW 18.8 % (12.4-16.6)
[2025-04-01 00:13] LABS: POTASSIUM 4.8 mmol/L (3.5-5.1)
[2025-04-01 00:15] LABS: ALBUMIN 1.4 g/dl (3.4-5.0); CALCIUM 8.6 mg/dL (8.5-10.1); MAGNESIUM 1.9 mg/dL (1.8-2.4)
[2025-04-01 00:17] LABS: CREATININE 0.3 mg/dL (0.55-1.3)
[2025-04-01] MEDS: FUROSEMIDE 40 MG/4 ML INJECTABLE VIAL IVPUSH ONE (00:17)
[2025-04-01 00:19] LABS: PHOSPHOROUS 3.2 mg/dL (2.5-4.9)
[2025-04-01 00:20] LABS: BILIRUBIN,TOTAL 0.9 mg/dL (0.2-1); TOT PROT 4.9 g/dl (6.4-8.2)
[2025-04-01] MEDS: DEXTROSE 50%-WATER 25 GM/50 ML DISP.SYRIN IVPUSH PRN (05:41)
[2025-04-01 06:34] LABS: ABSOLUTE IMMATURE GRANULOCYTES 0.14 x10^3/uL (0.0-0.031); BASOPHILS # 0.07 x10^3/uL (0.01-0.08); EOSINOPHIL % 0.4 % (0.7-5.8); EOSINOPHILS # 0.06 x10^3/uL (0.04-0.36); MEAN CELL VOLUME 93.8 fl (79.4-94.8)
[2025-04-01 06:36] LABS: HEMATOCRIT 25.6 % (34.1-44.9); HEMOGLOBIN 8.1 g/dL (11.2-15.7); MCHC 31.6 g/dl (32.2-35.5); MEAN PLT VOLUME 11.9 fl (9.4-12.3); MONOCYTE % 5.7 % (4.7-12.5); PLATELET COUNT 162 x10^3/uL (182-369); RDW 19.7 % (12.4-16.6)
[2025-04-01 06:51] LABS: POTASSIUM 4.6 mmol/L (3.5-5.1)
[2025-04-01 07:00] LABS: ALBUMIN 1.4 g/dl (3.4-5.0); BLOOD UREA NITROGEN 41.5 mg/dL (7-18); CALCIUM 8.5 mg/dL (8.5-10.1); MAGNESIUM 1.9 mg/dL (1.8-2.4)
[2025-04-01 07:03] LABS: CREATININE 0.3 mg/dL (0.55-1.3); PHOSPHOROUS 3.2 mg/dL (2.5-4.9)
[2025-04-01 07:04] LABS: BILIRUBIN,TOTAL 1.1 mg/dL (0.2-1); TOT PROT 4.7 g/dl (6.4-8.2)
[2025-04-01] MEDS: FUROSEMIDE 40 MG/4 ML INJECTABLE VIAL IVPUSH SCH (07:16)
[2025-04-01] MEDS: PANTOPRAZOLE SODIUM 40 MG VIAL IVPUSH SCH (09:14)
[2025-04-01] MEDS: AMINO ACIDS/PROTEIN HYDROLYS 30 ML LIQUID.PKT NGT SCH (09:14)
[2025-04-01] MEDS: amLODIPine BESYLATE 5 MG TABLET (FP) NGT SCH (09:15)
[2025-04-01] MEDS: ZINC SULFATE 220 MG CAPSULE (FP) NGT SCH (09:15)
[2025-04-01] MEDS ORDERED: AMIODARONE HCL 200 MG TABLET GT SCH (10:00)
[2025-04-01] MEDS: AMIODARONE HCL 200 MG TABLET PO ONE (14:55)
[2025-04-01] MEDS: MAGNESIUM SULFATE IN WATER 2 GM/50 ML IVPB IVPB ONE (22:06)
[2025-04-01 22:18] LABS: ALBUMIN 1.3 g/dl (3.4-5.0); BLOOD UREA NITROGEN 40.2 mg/dL (7-18); CALCIUM 8.4 mg/dL (8.5-10.1); MAGNESIUM 1.9 mg/dL (1.8-2.4); POTASSIUM 4.1 mmol/L (3.5-5.1)
[2025-04-01 22:21] LABS: CREATININE 0.4 mg/dL (0.55-1.3)
[2025-04-01 22:22] LABS: PHOSPHOROUS 3.1 mg/dL (2.5-4.9)
[2025-04-01 22:23] LABS: TOT PROT 4.8 g/dl (6.4-8.2)
[2025-04-02 06:25] LABS: POTASSIUM 4.1 mmol/L (3.5-5.1)
[2025-04-02 06:28] LABS: CALCIUM 8.6 mg/dL (8.5-10.1)
[2025-04-02 06:29] LABS: ALBUMIN 1.3 g/dl (3.4-5.0); BLOOD UREA NITROGEN 40.2 mg/dL (7-18); MAGNESIUM 2.1 mg/dL (1.8-2.4)
[2025-04-02 06:32] LABS: CREATININE 0.4 mg/dL (0.55-1.3); PHOSPHOROUS 3.3 mg/dL (2.5-4.9)
[2025-04-02 06:33] LABS: BILIRUBIN,TOTAL 0.9 mg/dL (0.2-1); TOT PROT 4.8 g/dl (6.4-8.2)
[2025-04-02 06:41] LABS: HEMATOCRIT 24.9 % (34.1-44.9); MCHC 32.1 g/dl (32.2-35.5); PLATELET COUNT 142 x10^3/uL (182-369); RDW 19.5 % (12.4-16.6)
[2025-04-02] MEDS ORDERED: NOREPINEPHRINE BITARTRATE 4 MG/4 ML ML IV ONE (06:57)
[2025-04-02] MEDS: NOREPINEPHRINE BITARTRATE 4,000 MCG in DEXTROSE 5%-WATER - 496 ML IV SCH (07:24)
[2025-04-02 08:53] LABS: MONOCYTE # 0.95 x10^3/uL (0.24-0.86)
[2025-04-02] MEDS: MEROPENEM 1 GM in DEXTROSE 5%-WATER 100 ML IVPB SCH (09:01)
[2025-04-02] MEDS: MIDODRINE HCL 5 MG TABLET NGT SCH (09:01)
[2025-04-02] MEDS: AMIODARONE HCL 200 MG TABLET PO SCH (09:01)
[2025-04-02 10:09] LABS: URINE APPEARANCE CLEAR; URINE BILIRUBIN NEGATIVE (NEGATIVE); URINE COLOR YELLOW; URINE GLUCOSE (UA) NEGATIVE (NEGATIVE); URINE KETONE TRACE (NEGATIVE); URINE LEUK ESTERASE NEGATIVE (NEGATIVE); URINE NITRITE NEGATIVE (NEGATIVE); URINE PROTEIN NEGATIVE (NEGATIVE); URINE UROBILINOGEN 0.2 mg/dL (0.2-1.0)
[2025-04-02] MEDS: ALBUMIN HUMAN 25% 100 ML VIAL IV ONE (12:59)
[2025-04-02] MEDS: ACETAMINOPHEN 1000 MG/100 ML BAG IVPB PRN (20:07)
[2025-04-02] MEDS ORDERED: MEROPENEM 1 GM in DEXTROSE 5%-WATER 100 ML IVPB SCH (22:00)
[2025-04-03 07:00] LABS: POTASSIUM 3.5 mmol/L (3.5-5.1)
[2025-04-03 07:09] LABS: CALCIUM 8.4 mg/dL (8.5-10.1)
[2025-04-03 07:10] LABS: BLOOD UREA NITROGEN 42.1 mg/dL (7-18); MAGNESIUM 1.9 mg/dL (1.8-2.4)
[2025-04-03 07:13] LABS: PHOSPHOROUS 3.1 mg/dL (2.5-4.9)
[2025-04-03 07:14] LABS: BILIRUBIN,TOTAL 0.8 mg/dL (0.2-1); TOT PROT 4.8 g/dl (6.4-8.2)
[2025-04-03 07:16] LABS: ALBUMIN 1.6 g/dl (3.4-5.0)
[2025-04-03 08:16] LABS: HEMATOCRIT 22.2 % (34.1-44.9); HEMOGLOBIN 7.1 g/dL (11.2-15.7); MEAN CELL VOLUME 95.7 fl (79.4-94.8); RDW 19.9 % (12.4-16.6)
[2025-04-03 08:48] LABS: CREATININE 0.5 mg/dL (0.55-1.3)
[2025-04-03] MEDS: ENOXAPARIN NA (PORCINE) 40 MG/0.4 ML DISP.SYRIN SQ SCH (09:18)
[2025-04-03] MEDS: ENOXAPARIN NA (PORCINE) 40 MG/0.4 ML DISP.SYRIN SQ ONE (10:07)
[2025-04-03 13:44] VITALS: TEMP 97.5
[2025-04-03 15:06] VITALS: BP 130/55
[2025-04-03 15:28] VITALS: PULSE 58; RESP 17
[2025-04-03] MEDS ORDERED: ENOXAPARIN NA (PORCINE) 80 MG/0.8 ML DISP.SYRIN SQ SCH (22:00)
== END 2025-04-03 16:30 | disposition short-term general hospital (02) | DRG 4 ==
LOC: JER 12:41 → JERBED 13:50 → OBSVTOIN 18:29 → J4S 18:55 → J2W 02-25 11:19 → JICU 02-28 20:20 → J2W 03-10 21:01 → JICU 03-13 19:53 → J2W 03-21 17:53 → JICU 03-31 20:26
PROVIDERS: ADMIT Internal Medicine; ATTEND Internal Medicine
PROC: 05HM33Z Insertion of Infusion Device into Right Internal Jugular Vein, Percutaneous Approach (ICD-10-PCS; 2025-02-28)
PROC: B543ZZA Ultrasonography of Right Jugular Veins, Guidance (ICD-10-PCS; 2025-02-28)
PROC: 0DH67UZ Insertion of Feeding Device into Stomach, Via Natural or Artificial Opening (ICD-10-PCS; 2025-03-02)
PROC: 3E0G76Z Introduction of Nutritional Substance into Upper GI, Via Natural or Artificial Opening (ICD-10-PCS; 2025-03-02)
PROC: 30233N1 Transfusion of Nonautologous Red Blood Cells into Peripheral Vein, Percutaneous Approach (ICD-10-PCS; 2025-03-08)
PROC: 06HY33Z Insertion of Infusion Device into Lower Vein, Percutaneous Approach (ICD-10-PCS; 2025-03-11)
PROC: 5A1955Z Respiratory Ventilation, Greater than 96 Consecutive Hours (ICD-10-PCS; 2025-03-13)
PROC: 4A133J1 Monitoring of Arterial Pulse, Peripheral, Percutaneous Approach (ICD-10-PCS; 2025-03-13)
PROC: 4A133B1 Monitoring of Arterial Pressure, Peripheral, Percutaneous Approach (ICD-10-PCS; 2025-03-13)
PROC: 0BH17EZ Insertion of Endotracheal Airway into Trachea, Via Natural or Artificial Opening (ICD-10-PCS; 2025-03-13)
PROC: 05HN33Z Insertion of Infusion Device into Left Internal Jugular Vein, Percutaneous Approach (ICD-10-PCS; 2025-03-13)
PROC: B544ZZA Ultrasonography of Left Jugular Veins, Guidance (ICD-10-PCS; 2025-03-13)
PROC: 0B113F4 Bypass Trachea to Cutaneous with Tracheostomy Device, Percutaneous Approach (ICD-10-PCS; principal; 2025-03-20)
PROC: 0BJ08ZZ Inspection of Tracheobronchial Tree, Via Natural or Artificial Opening Endoscopic (ICD-10-PCS; 2025-03-20)
PROC: 4A133B1 Monitoring of Arterial Pressure, Peripheral, Percutaneous Approach (ICD-10-PCS; 2025-03-31)
PROC: 4A133J1 Monitoring of Arterial Pulse, Peripheral, Percutaneous Approach (ICD-10-PCS; 2025-03-31)
DX: J18.9 Pneumonia, unspecified organism (principal); A41.9 Sepsis, unspecified organism; G92.8 Other toxic encephalopathy; I21.4 Non-ST elevation (NSTEMI) myocardial infarction; J96.01 Acute respiratory failure with hypoxia; R65.21 Severe sepsis with septic shock; I46.9 Cardiac arrest, cause unspecified; I50.23 Acute on chronic systolic (congestive) heart failure; R57.0 Cardiogenic shock; N17.9 Acute kidney failure, unspecified; E87.0 Hyperosmolality and hypernatremia; B49 Unspecified mycosis; J90 Pleural effusion, not elsewhere classified; I24.89 Other forms of acute ischemic heart disease; E87.20 Acidosis, unspecified; J69.0 Pneumonitis due to inhalation of food and vomit; I11.0 Hypertensive heart disease with heart failure; I73.9 Peripheral vascular disease, unspecified; F03.90 Unspecified dementia, unspecified severity, without behavioral disturbance, psychotic disturbance, mood disturbance, and anxiety; E11.65 Type 2 diabetes mellitus with hyperglycemia; E78.5 Hyperlipidemia, unspecified; I48.91 Unspecified atrial fibrillation; L89.611 Pressure ulcer of right heel, stage 1; L89.896 Pressure-induced deep tissue damage of other site; I95.9 Hypotension, unspecified; I25.10 Atherosclerotic heart disease of native coronary artery without angina pectoris; R00.1 Bradycardia, unspecified; I27.20 Pulmonary hypertension, unspecified; D64.9 Anemia, unspecified; I48.0 Paroxysmal atrial fibrillation; E87.6 Hypokalemia
CPT/HCPCS: 0241U-QW; 31500; 36415; 36430; 36600; 70450-TC; 71045-TC-FY; 71250-TC; 73630-TC-LT; 74176-TC; 76705-TC; 76775-TC; 80048; 80051; 80053; 81003; 82010; 82140; 82272; 82308; 82550; 82553; 82570; 82728; 82803; 82962; 83540; 83550; 83605; 83690; 83735; 83880; 83930; 83935; 84100; 84439; 84443; 84466; 84484; 85025; 85027; 85610; 85730; 86140; 86850; 86900; 86901; 86922; 87040; 87070; 87077; 87081; 87086; 87106; 87186; 87205; 87324; 87449; 87481; 87899; 93005; 93010; 93306-TC; 93971; 94002; 94640; 99291; G0378; J0282; J0637; J1250; J1756; J3490; P9058; Q9963